=== PATIENT | female | born 1980 | race Caucasian/White ===

== ENCOUNTER 2017-06-07 19:15 | Emergency (ER) | payer MEDICAID, OTHER ==
--- NOTE | 2017-06-07 19:17 | EDPHY ---
H & P HPI/ROS: HPI CHIEF COMPLAINT: Abdominal pain HISTORY OF PRESENT ILLNESS: Patient very pleasant 36-year-old female, she has history of bipolar disorder, additionally she has had her left ovary removed due to a large left ovarian cyst. She intermittently gets right ovarian cyst. She presents emergency room with abdominal pain located right lower quadrant. She denies any fever. Denies vaginal discharge. Denies urinary symptoms. She is unsure if she has another right ovarian cyst 1st appendicitis. She does state she has had some diarrhea 1 episode of vomiting. Pain is located dull ache right lower quadrant /10. Patient states her pain is been there for over 24 hr. Denies fever. Past Medical History: Ovarian cysts, bipolar disorder Past Surgical History: Denies recent surgery but does have a history of left ovarian removal. Due to very large cyst. Social History: Denies drugs alcohol or tobacco. Family History: Noncontributory ROS REVIEW OF SYSTEMS: A comprehensive 10 point review of systems is otherwise negative aside from elements mentioned in the history of present illness. Exam Constitutional appears well non toxic, triage nursing summary reviewed, vital signs reviewed, awake/alert. Eyes normal conjunctivae and sclera, EOMI, PERRLA. HENT normal inspection, atraumatic, moist mucus membranes, no epistaxis, neck supple/ no meningismus, no raccoon eyes. Respiratory clear to auscultation bilaterally, normal breath sounds, no respiratory distress, no wheezing. Cardiovascular rate normal, regular rhythm, no murmur, no edema, distal pulses normal. Gastrointestinal mild tender palpation right lower quadrant specifically periumbilical and right lower quadrant, less so in the adnexal no rebound, no guarding, normal bowel sounds, no distension, no pulsatile mass. Genitourinary no CVA tenderness. Musculoskeletal no midline vertebral tenderness, full range of motion, no calf swelling, no tenderness of extremities, no meningismus, good pulses, neurovascularly intact. Skin pink, warm, & dry, no rash, skin atraumatic. Neurologic awake, alert and oriented x 3, AAOx3, moves all 4 extremities equally, motor intact, sensory intact, CN II-XII intact, normal cerebellar, normal vision, normal speech. Psychiatric normal mood/affect. Heme/Lymph/Immune no lymphadenopathy. Differential Diagnosis: Includes but is not limited to in a particular order acute appendicitis, diverticulitis, colitis, UTI, , pyelonephritis, ovarian cyst, ovarian torsion, ruptured ovarian cyst Medical Decision Making: Plan for this patient IV establishment with IV pain control 0.5 mg IV Dilaudid for pain control, IV Zofran for nausea, IV fluids, check UA, check test, check basic blood work, proceed with CT scan abdomen pelvis with IV contrast rule out acute appendicitis. Re-evaluation: CT scan abdomen pelvis with IV contrast called to me by Dr. Sparks. This shows a normal appendix. However shows a right adnexal the has multiple right ovarian cyst with most likely hemorrhagic ovarian cyst. Recommend OBGYN follow-up. Additionally recommend [place] for severe pain, ibuprofen for mild pain. Warm compresses. Additionally recommend return emergency room if she develops worsening pain fever vomiting. She understands 2100: I did re-evaluate this patient this time. She continues to have right lower abdominal pain. Now more so in the right adnexa. She does feel better after IV Dilaudid. However his crusting more pain medicine. I have ordered her another dose of IV Dilaudid 0.5 mg. Additionally I will refer her to OBGYN for ovarian cyst. I will provide her with a prescription for [place] for severe pain, ibuprofen for mild pain. Additionally given that she is having ongoing pain I will perform an ultrasound to better visualize her right ovary right ovarian cyst. Doubt torsion. Ultrasound at this time is pending. 2233: Ultrasound pretty much unchanged from CT scan. Right ovarian cysts seen. Will have patient follow up with OBGYN. Additionally [place] for pain control. Ibuprofen for pain control. She has no pain on left side or low pelvic pain the pain is located right adnexal right lower quadrant. Recommend return precautions she understands return emergency room if develops worsening abdominal pain, fever, questions or concerns. Source: Patient Constitutional: Initial Vital Signs Temperature (C) 36.7 C 06/07/17 19:25 Heart Rate 78 06/07/17 19:25 Respiratory Rate 16 06/07/17 19:25 Blood Pressure 135/74 H 06/07/17 19:25 O2 Sat (%) 95 06/07/17 19:25 O2 Delivery Mode Room Air O2 (L/minute) 2 Allergies/Adverse Reactions: Sulfa (Sulfonamide Antibiotics) Allergy (Verified 06/07/17 19:36) Home Medications: Medication Instructions Recorded Joe 06/07/17 Hydrocodone/APAP 5/325 [[place] 1 - 2 tab PO Q4H PRN #10 tab 06/07/17 5/325] Ibuprofen [Motrin (*)] 800 mg PO Q6-8PRN #10 tab 06/07/17 LISINOPRIL/HYDROCHLOROTHIAZIDE 06/07/17 Paxil 06/07/17 Seroquel 06/07/17 Medical Decision Making - Diagnostics Imaging Results: Imaging Impressions Abdomen CT 06/07/17 19:41 Impression: 1. Follicles as well as follicular cyst right adnexa with possible hemorrhagic cyst. 2. Normal-appearing appendix. 3. Fluid-filled tubular structure left adnexa that could represent dilated fallopian tube/hydrosalpinx. Findings discussed with Suresh Padilla MD at 20:49 hour, 06/07/2017. - Data Points Laboratory Results: Laboratory Results 06/07/17 19:50 06/07/17 19:50 06/07/17 06/07/17 06/07/17 20:00 19:50 19:50 WBC RBC Hgb Hct MCV MCH MCHC RDW Plt Count MPV Neut % (Auto) Lymph % (Auto) [place] % (Auto) Eos % (Auto) Baso % (Auto) Nucleat RBC Rel Count Absolute Neuts (auto) Absolute Lymphs (auto) Absolute Monos (auto) Absolute Eos (auto) Absolute Basos (auto) Absolute Nucleated RBC Immature Gran % Immature Gran # Sodium 140 mEq/L mEq/L (135-145) Potassium 4.1 mEq/L mEq/L (3.5-5.2) Chloride 99 mEq/L mEq/L (97-110) Carbon Dioxide 26 mEq/l mEq/l (22-31) Anion Gap 15 mEq/L mEq/L (8-16) BUN 15 mg/dL mg/dL (7-23) Creatinine 0.7 mg/dL mg/dL (0.6-1.0) Estimated GFR > 60 Glucose 84 mg/dL mg/dL (70-100) Calcium 9.2 mg/dL mg/dL (8.5-10.4) Total Bilirubin 0.2 mg/dL mg/dL (0.1-1.4) Conjugated Bilirubin 0.1 mg/dL mg/dL (0.0-0.5) Unconjugated Bilirubin 0.1 mg/dL mg/dL (0.0-1.1) AST 25 IU/L IU/L (14-46) ALT 45 IU/L IU/L (9-52) Alkaline Phosphatase 51 IU/L IU/L (38-126) Total Protein 6.9 g/dL g/dL (6.3-8.2) Albumin 4.0 g/dL g/dL (3.5-5.0) Lipase 133 IU/L IU/L (23-300) Beta HCG, Qual NEGATIVE Urine Color PALE YELLOW Urine Appearance CLEAR Urine pH 6.0 (5.0-7.5) Ur Specific [place] <= 1.005 (1.002-1.030) Urine Protein NEGATIVE (NEGATIVE) Urine Ketones NEGATIVE (NEGATIVE) Urine Blood NEGATIVE (NEGATIVE) Urine Nitrate NEGATIVE (NEGATIVE) Urine Bilirubin NEGATIVE (NEGATIVE) Urine Urobilinogen 0.2 EU EU (0.2-1.0) Ur Leukocyte Esterase NEGATIVE (NEGATIVE) Urine Glucose NEGATIVE (NEGATIVE) 06/07/17 19:50 WBC 6.74 10^3/uL 10^3/uL (3.80-9.50) RBC 4.71 10^6/uL 10^6/uL (4.18-5.33) Hgb 14.6 g/dL g/dL (12.6-16.3) Hct 41.6 % % (38.0-47.0) MCV 88.3 fL fL (81.5-99.8) MCH 31.0 pg pg (27.9-34.1) MCHC 35.1 g/dL g/dL (32.4-36.7) RDW 11.4 % L % (11.5-15.2) Plt Count 329 10^3/uL 10^3/uL (150-400) MPV 8.9 fL fL (8.7-11.7) Neut % (Auto) 55.0 % % (39.3-74.2) Lymph % (Auto) 33.7 % % (15.0-45.0) [place] % (Auto) 6.1 % % (4.5-13.0) Eos % (Auto) 4.2 % % (0.6-7.6) Baso % (Auto) 0.6 % % (0.3-1.7) Nucleat RBC Rel Count 0.0 % % (0.0-0.2) Absolute Neuts (auto) 3.71 10^3/uL 10^3/uL (1.70-6.50) Absolute Lymphs (auto) 2.27 10^3/uL 10^3/uL (1.00-3.00) Absolute Monos (auto) 0.41 10^3/uL 10^3/uL (0.30-0.80) Absolute Eos (auto) 0.28 10^3/uL 10^3/uL (0.03-0.40) Absolute Basos (auto) 0.04 10^3/uL 10^3/uL (0.02-0.10) Absolute Nucleated RBC 0.00 10^3/uL 10^3/uL (0-0.01) Immature Gran % 0.4 % % (0.0-1.1) Immature Gran # 0.03 10^3/uL 10^3/uL (0.00-0.10) Sodium Potassium Chloride Carbon Dioxide Anion Gap BUN Creatinine Estimated GFR Glucose Calcium Total Bilirubin Conjugated Bilirubin Unconjugated Bilirubin AST ALT Alkaline Phosphatase Total Protein Albumin Lipase Beta HCG, Qual Urine Color Urine Appearance Urine pH Ur Specific [place] Urine Protein Urine Ketones Urine Blood Urine Nitrate Urine Bilirubin Urine Urobilinogen Ur Leukocyte Esterase Urine Glucose Medications Given: Discontinued Medications Hydrocodone Bitart/Acetaminophen ([place] 5/325mg Prepack#6) 1 btl TAKEHOME EDNOW ONE Stop: 06/07/17 21:01 Last Admin: 06/07/17 21:09 Dose: 1 btl Hydromorphone HCl (Dilaudid) 0.5 mg IVP EDNOW ONE Stop: 06/07/17 19:42 Last Admin: 06/07/17 20:12 Dose: 0.5 mg Hydromorphone HCl (Dilaudid) 0.5 mg IVP EDNOW ONE Stop: 06/07/17 20:59 Last Admin: 06/07/17 21:09 Dose: 0.5 mg Sodium Chloride (Ns) 1,000 mls @ 0 mls/hr IV EDNOW ONE; Wide Open PRN Reason: Protocol Stop: 06/07/17 19:42 Last Admin: 06/07/17 20:15 Dose: 1,000 mls Ondansetron HCl (Zofran) 4 mg IVP EDNOW ONE Stop: 06/07/17 19:42 Last Admin: 06/07/17 20:12 Dose: 4 mg Departure - Departure Disposition: Home, Routine, Self-Care Clinical Impression: Ovarian cyst Qualifiers: Laterality: right Qualified Code(s): N83.201 - Unspecified ovarian cyst, right side Condition: Good Instructions: Hydrocodone/Acetaminophen (By mouth), Ovarian Cyst (ED), Ruptured Ovarian Cyst (ED) Additional Instructions: 1. Follow up with OBGYN. 2. Call for an appointment. 3. Return emergency room if you have worsening pain fever vomiting. 4. Take [place] few having severe pain. 5. Ibuprofen for mild pain. Referrals: NONE *PRIMARY CARE P,. [Primary Care Provider] - As per Instructions Stand Alone Forms: Work Excuse Prescriptions: Hydrocodone/APAP 5/325 [[place] 5/325] 1 - 2 tab PO Q4H PRN #10 tab PRN Reason: Pain, Moderate Ibuprofen [Motrin (*)] 800 mg PO Q6-8PRN #10 tab
[2017-06-07] MEDS ORDERED: HYDROmorphONE/DILAUDID 1 MG/ML INJ IVP ONE ×2 (19:41→20:58)
[2017-06-07] MEDS ORDERED: ONDANSETRON 4 MG/2 ML VIAL IVP ONE (19:41)
[2017-06-07] MEDS ORDERED: NS 1,000 ML IV ONE (19:41)
[2017-06-07 19:44] VITALS: RESP 16
[2017-06-07] MEDS ORDERED: IOPAMIDOL (ISOVUE-300) 100 ML BTL ONE (19:47)
[2017-06-07 19:54] LABS: PLATELET COUNT 329 10^3/uL (150-400)
[2017-06-07] MEDS ORDERED: HYDROCOD/APAP 5/325 PREPACK#6 BTL TAKEHOME ONE (21:00)
[2017-06-07 22:01] VITALS: BP 117/92; TEMP 98.4
[2017-06-07 22:06] VITALS: PULSE 72; O2SAT 98
== END 2017-06-07 22:44 | disposition home or self-care (01) ==
LOC: CED 19:15
DX: N83.201 Unspecified ovarian cyst, right side (principal); E86.9 Volume depletion, unspecified
CPT/HCPCS: 74177-PO; 76856-PO; 80048-PO; 80076-PO; 81003-PO; 83690-PO; 84703-PO; 85025-PO; 96374; J1170; J2405; Q9967

== ENCOUNTER 2017-06-10 17:20 | Emergency (ER) | payer MEDICAID ==
[2017-06-10 17:33] VITALS: RESP 16; TEMP 98.2; O2SAT 97
[2017-06-10 18:02] LABS: PLATELET COUNT 263 10^3/uL (150-400)
[2017-06-10] MEDS ORDERED: KETOROLAC 30 MG/1 ML SDV IVP ONE (18:02)
[2017-06-10] MEDS ORDERED: NS 1,000 ML IV ONE (18:03)
--- NOTE | 2017-06-10 18:11 | EDPHY ---
HPI/HX/ROS/PE/MDM Narrative: CHIEF COMPLAINT: Pelvic pain HPI: The patient is a 36-year-old female who was seen in the emergency department 3 days ago for pelvic pain which started the day prior. At that time she had a CT scan and ultrasound which were negative except for ovarian cysts which was her discharge diagnosis. She returns to the emergency department complaining of continued right lower quadrant pain that has been constant. She was prescribed [place] which has run out and she has been unable to establish a recovery assistant. She states that her pain is worse and she has become nauseated. She states that she now notices a small amount of vaginal discharge. She has plans to follow up with a recovery assistant tomorrow. No fever. No trauma. Pain is worse with intercourse and sitting in certain positions. REVIEW OF SYSTEMS: Aside from elements discussed in the HPI, a comprehensive 10-point review of systems was reviewed and is negative. PMH: Includes bipolar, history of ovarian removal. SOCIAL HISTORY: Denies drug or alcohol abuse. PHYSICAL EXAM: General:Patient is alert, in no acute distress. ENT:Eyes are normal to inspection. ENT inspection normal. Neck: Normal inspection. Full range of motion. Respiratory:No respiratory distress. Breath sounds normal bilaterally. Cardiovascular: Regular rate and rhythm. Strong peripheral pulses. Normal cap refill. Abdomen: Moderate tenderness to palpation is present in the right lower quadrant. There are no peritoneal signs. There are normal bowel sounds. Back: Normal to inspection. No tenderness to palpation. Skin: Normal color. No rash. Warm and dry. Extremities: Normal appearance. Full range of motion. Neuro: Oriented x3. Normal motor function. Normal sensory function. ED Course: Pelvic exam was performed with RN present at bedside. Small amount of brownish discharge noted in vaginal vault. Os is closed. No bleeding, trauma or obvious mass appreciated. No external mass or lesions. IV Toradol administered. On re-evaluation, abdomen remains benign. Patient lying comfortably in bed watching TV. MDM: This patient presents with continued pelvic pain with ovarian cyst diagnosed three days ago with otherwise negative CT and US. Her WBC remains normal, as does her vitals. She is not . Pelvic exam was performed and was unremarkable except for some mild brownish discharge. Swabs were performed but need to be sent to main lab to be run. I offered to start patient empirically on antibiotics for PID, but she would prefer to wait on swab results and will call in to find out the results. Patient was given referral to [facility] at last visit and plans to see [facility] tomorrow for further evaluation. Given constancy of pain for last 4 days and comfortable appearance with negative US 3 days ago, I highly doubt ovarian torsion. Patient declines additional pelvic US. With negative CTAP and normal WBC, I think appendicitis is very unlikely, and do not think repeat CT is indicated at this time. I have agreed to provide patient with additional short course of Percocet until she can be seen by [facility]. - Data Points Laboratory Results: Laboratory Results 06/10/17 17:55 06/10/17 17:55 06/10/17 06/10/17 06/10/17 18:15 18:15 17:55 WBC RBC Hgb Hct MCV MCH MCHC RDW Plt Count MPV Neut % (Auto) Lymph % (Auto) [place] % (Auto) Eos % (Auto) Baso % (Auto) Nucleat RBC Rel Count Absolute Neuts (auto) Absolute Lymphs (auto) Absolute Monos (auto) Absolute Eos (auto) Absolute Basos (auto) Absolute Nucleated RBC Immature Gran % Immature Gran # Sodium Potassium Chloride Carbon Dioxide Anion Gap BUN Creatinine Estimated GFR Glucose Calcium Beta HCG, Qual NEGATIVE Simran species DNA Pending C.trachomatis RNA (TMA) Pending Gardnerella DNA Probe Pending N.gonorrhoeae RNA (TMA) Pending Trichomonas DNA Probe Pending 06/10/17 06/10/17 17:55 17:55 WBC 5.89 10^3/uL 10^3/uL (3.80-9.50) RBC 4.42 10^6/uL 10^6/uL (4.18-5.33) Hgb 13.8 g/dL g/dL (12.6-16.3) Hct 40.0 % % (38.0-47.0) MCV 90.5 fL fL (81.5-99.8) MCH 31.2 pg pg (27.9-34.1) MCHC 34.5 g/dL g/dL (32.4-36.7) RDW 11.5 % % (11.5-15.2) Plt Count 263 10^3/uL D 10^3/uL (150-400) MPV 9.2 fL fL (8.7-11.7) Neut % (Auto) 57.5 % % (39.3-74.2) Lymph % (Auto) 28.9 % % (15.0-45.0) [place] % (Auto) 7.8 % % (4.5-13.0) Eos % (Auto) 4.9 % % (0.6-7.6) Baso % (Auto) 0.7 % % (0.3-1.7) Nucleat RBC Rel Count 0.0 % % (0.0-0.2) Absolute Neuts (auto) 3.39 10^3/uL 10^3/uL (1.70-6.50) Absolute Lymphs (auto) 1.70 10^3/uL 10^3/uL (1.00-3.00) Absolute Monos (auto) 0.46 10^3/uL 10^3/uL (0.30-0.80) Absolute Eos (auto) 0.29 10^3/uL 10^3/uL (0.03-0.40) Absolute Basos (auto) 0.04 10^3/uL 10^3/uL (0.02-0.10) Absolute Nucleated RBC 0.00 10^3/uL 10^3/uL (0-0.01) Immature Gran % 0.2 % % (0.0-1.1) Immature Gran # 0.01 10^3/uL 10^3/uL (0.00-0.10) Sodium 137 mEq/L mEq/L (135-145) Potassium 4.3 mEq/L mEq/L (3.5-5.2) Chloride 97 mEq/L mEq/L (97-110) Carbon Dioxide 28 mEq/l mEq/l (22-31) Anion Gap 12 mEq/L mEq/L (8-16) BUN 11 mg/dL mg/dL (7-23) Creatinine 0.7 mg/dL mg/dL (0.6-1.0) Estimated GFR > 60 Glucose 79 mg/dL mg/dL (70-100) Calcium 9.0 mg/dL mg/dL (8.5-10.4) Beta HCG, Qual Simran species DNA C.trachomatis RNA (TMA) Gardnerella DNA Probe N.gonorrhoeae RNA (TMA) Trichomonas DNA Probe Medications Given: Discontinued Medications Sodium Chloride (Ns) 1,000 mls @ 0 mls/hr IV EDNOW ONE; Wide Open PRN Reason: Protocol Stop: 06/10/17 18:04 Last Admin: 06/10/17 18:06 Dose: 1,000 mls Ketorolac Tromethamine (Toradol) 30 mg IVP EDNOW ONE Stop: 06/10/17 18:03 Last Admin: 06/10/17 18:08 Dose: 30 mg General Time Seen by Provider: 06/10/17 17:29 Initial Vital Signs: Initial Vital Signs Temperature (C) 36.8 C 06/10/17 17:29 Heart Rate 84 06/10/17 17:29 Respiratory Rate 16 06/10/17 17:29 Blood Pressure 119/87 H 06/10/17 17:29 O2 Sat (%) 97 06/10/17 17:29 O2 Delivery Mode Room Air Allergies/Adverse Reactions: Sulfa (Sulfonamide Antibiotics) Allergy (Verified 06/10/17 17:33) Home Medications: Medication Instructions Recorded Ambien 06/07/17 LISINOPRIL/HYDROCHLOROTHIAZIDE 06/07/17 Paxil 06/07/17 Depakote 06/10/17 Xanax 06/10/17 oxyCODONE/APAP 5/325 [Percocet 1 - 2 tab PO Q4H PRN #7 tab 06/10/17 5/325 (*)] Departure - Departure Disposition: Home, Routine, Self-Care Clinical Impression: Pelvic pain in female Condition: Good Instructions: Pelvic Pain in Women (ED) Additional Instructions: Follow-up with a recovery assistant tomorrow for further evaluation without fail. Return to the ED for fever, worsening pain or other concerns. Call back to the ED tomorrow morning to get results of the swab samples taken. Referrals: NONE *PRIMARY CARE P,. [Primary Care Provider] - As per Instructions Prescriptions: oxyCODONE/APAP 5/325 [Percocet 5/325 (*)] 1 - 2 tab PO Q4H PRN #7 tab PRN Reason: Pain, Severe
[2017-06-10] MEDS ORDERED: OXYCODONE/APAP 5/325MG PREPACK#4 BTL TAKEHOME ONE (18:48)
[2017-06-10 19:23] VITALS: BP 126/83; PULSE 81
[2017-06-11 13:26] LABS: GC AMPLIFICATION GENPROBE NEGATIVE (NEGATIVE)
== END 2017-06-10 19:17 | disposition home or self-care (01) ==
LOC: CED 17:20
DX: R10.2 Pelvic and perineal pain (principal); E86.9 Volume depletion, unspecified
CPT/HCPCS: 80048-PO; 84703-PO; 85025-PO; 96374; J1885

== ENCOUNTER 2017-06-21 11:58 | Emergency (ER) | payer MEDICAID ==
[2017-06-21 12:06] VITALS: RESP 18; TEMP 98.8
[2017-06-21] MEDS ORDERED: KETOROLAC 30 MG/1 ML SDV IM ONE (12:12)
[2017-06-21] MEDS ORDERED: ONDANSETRON DISINTEGRATING 4 MG TAB PO ONE (12:12)
--- NOTE | 2017-06-21 12:16 | EDPHY ---
H & P Stated Complaint: RLQ ABD PAIN STARTED LAST NIGHT Time Seen by Provider: 06/21/17 12:07 HPI/ROS: CHIEF COMPLAINT: Ovarian cyst pain HISTORY OF PRESENT ILLNESS: Patient is a 36-year-old female who is seen here on the and diagnosed with right-sided ovarian cyst. She was prescribed narcotics and follow-up recommended. She followed up with her OBGYN yesterday who performed an ultrasound and pelvic exam and stated that this cyst is still present. They recommended drainage which was scheduled for the . She has continued to have pain but was not prescribe narcotics by her OBGYN yesterday. She has been taking Tylenol without significant relief. She also has some nausea. She has not had a fever. She states that her pain has not changed in location or intensity. No urinary symptoms. She has not had any discharge. REVIEW OF SYSTEMS: Constitutional: denies: chills, fever, recent illness, recent injury EENTM: denies: blurred vision, double vision, nose congestion Respiratory: denies: cough, shortness of breath Cardiac: denies: chest pain, irregular heart rate, lightheadedness, palpitations Gastrointestinal/Abdominal: See HPI Genitourinary: denies: dysuria, frequency, hematuria, pain Musculoskeletal: denies: joint pain, muscle pain Skin: denies: lesions, rash, jaundice, bruising Neurological: denies: headache, numbness, paresthesia, tingling, dizziness, weakness Hematologic/Lymphatic: denies: blood clots, easy bleeding, easy bruising Immunologic/allergic: denies: HIV/AIDS, transplant EXAM: GENERAL: Well-appearing, well-nourished and in no acute distress. HEAD: Atraumatic, normocephalic. EYES: Pupils equal round and reactive to light, extraocular movements intact, sclera anicteric, conjunctiva are normal. ENT: TMs normal, nares patent, oropharynx clear without exudates. Moist mucous membranes. NECK: Normal range of motion, supple without lymphadenopathy or JVD. LUNGS: Breath sounds clear to auscultation bilaterally and equal. No wheezes rales or rhonchi. HEART: Regular rate and rhythm without murmurs, rubs or gallops. ABDOMEN: Mild right lower quadrant tenderness, no guarding or rebound. BACK: No CVA tenderness, no spinal tenderness, step-offs or deformities EXTREMITIES: Normal range of motion, no pitting or edema. No clubbing or cyanosis. NEUROLOGICAL: Cranial nerves II through XII grossly intact. Normal speech, normal gait. 5/5 strength, normal movement in all extremities, normal sensation PSYCH: Normal mood, normal affect. SKIN: Warm, dry, normal turgor, no visible rashes or lesions. Source: Patient Exam Limitations: No limitations - Personal History LMP (Females 10-55): 15-21 Days Ago - Medical/Surgical History Hx Asthma: No Hx Chronic Respiratory Disease: No Hx Diabetes: No Hx Cardiac Disease: No Hx Renal Disease: No Hx Cirrhosis: No Hx Alcoholism: No Hx HIV/AIDS: No Hx Splenectomy or Spleen Trauma: No Other PMH: HTN. L OVARY REMOVED. - Social History Smoking Status: Heavy smoker Alcohol Use: Sober Drug Use: None Constitutional: Initial Vital Signs Temperature (C) 37.1 C 06/21/17 12:03 Heart Rate 99 06/21/17 12:03 Respiratory Rate 18 06/21/17 12:03 Blood Pressure 145/85 H 06/21/17 12:03 O2 Sat (%) 96 06/21/17 12:03 O2 Delivery Mode Room Air Allergies/Adverse Reactions: Sulfa (Sulfonamide Antibiotics) Allergy (Verified 06/21/17 12:26) Home Medications: Medication Instructions Recorded Ambien 06/07/17 LISINOPRIL/HYDROCHLOROTHIAZIDE 06/07/17 Paxil 06/07/17 Depakote 06/10/17 Xanax 06/10/17 oxyCODONE/APAP 5/325 [Percocet 1 - 2 tab PO Q4H PRN #7 tab 06/10/17 5/325 (*)] Ketorolac Tromethamine [Toradol] 10 mg PO Q6H #7 tab 06/21/17 Ondansetron Odt [Zofran Odt 4 mg 4 mg PO Q4 PRN #10 tab 06/21/17 (RX)] Medical Decision Making - Diagnostics Imaging: Discussed imaging studies w/ call center dispatcher Radiologist ED Course/Re-evaluation: We discussed options. The patient does not think she needs any further diagnostic studies. Her symptoms have not really changed it is just that she no longer has narcotic pain medication. She tried calling her OBGYN but she was out of the office. I will give her a dose of Toradol and Zofran but discussed with her are no narcotic in no refill policy. She understands and agrees. She will continue trying to contact her OBGYN that she saw yesterday. I advised her to return if any for symptoms worsen or change. 12:20 p.m. after further discussion the patient did agree to get a pelvic ultrasound to rule out torsion. She declines pelvic exam. She just had one done yesterday. 2:30 p.m. the patient has an ovarian cyst and hydrosalpinx as previously seen although the cyst is slightly larger today. No sign of torsion. The patient feels reassured and will follow up with her OBGYN. She has salpingectomy plannedon the . Differential Diagnosis: Partial list of the Differential diagnosis considered include but were not limited to; ovarian cyst, ovarian torsion, appendicitis and although unlikely based on the history and physical exam, I also considered diverticulitis, kidney stone, urinary tract infection. She understands that we cannot rule out all of these conditions without testing. - Data Points Medications Given: Discontinued Medications Ketorolac Tromethamine (Toradol) 60 mg IM EDNOW ONE Stop: 06/21/17 12:13 Last Admin: 06/21/17 12:28 Dose: 60 mg Ondansetron HCl (Zofran Odt) 4 mg PO EDNOW ONE Stop: 06/21/17 12:13 Last Admin: 06/21/17 12:26 Dose: 4 mg Departure - Departure Disposition: Home, Routine, Self-Care Clinical Impression: Ovarian cyst Qualifiers: Laterality: right Qualified Code(s): N83.201 - Unspecified ovarian cyst, right side Condition: Fair Instructions: Ovarian Cyst (ED) Referrals: Naina Ac DO [Primary Care Provider] - As per Instructions Prescriptions: Ketorolac Tromethamine [Toradol] 10 mg PO Q6H #7 tab Ondansetron Odt [Zofran Odt 4 mg (RX)] 4 mg PO Q4 PRN #10 tab PRN Reason: Nausea & Vomiting
[2017-06-21 14:29] VITALS: BP 106/55; PULSE 73; O2SAT 98
== END 2017-06-21 14:40 | disposition home or self-care (01) ==
LOC: CED 11:58
DX: N83.201 Unspecified ovarian cyst, right side (principal); I10 Essential (primary) hypertension; F17.200 Nicotine dependence, unspecified, uncomplicated
CPT/HCPCS: 76856-PO; J1885

== ENCOUNTER 2017-06-28 05:03 | Day surgery (SDC) | payer MEDICAID, OTHER ==
--- NOTE | 2017-06-26 14:38 | GHP ---
[f rep st] HISTORY AND PHYSICAL DATE OF ADMISSION: 06/28/2017 ADMITTING DIAGNOSES: 1. Right lower quadrant abdominal pain. 2. Pelvic pain. HISTORY OF PRESENT ILLNESS: The patient is a 36-year-old nulliparous female who presented to my office for ER followup. The patient was seen in the ER on both June 07 and June 10 with complaints of right lower quadrant abdominal pain, acute onset, and was diagnosed with a right-sided ovarian cyst. The patient endorses nausea and vomiting. Denies any fevers or chills. The patient continues to have pain that has worsened with radiation to the back. It is constant on a daily basis. Some relief with heat. No relief with Motrin or Tylenol. Pain is aggravated with intercourse. There are no alleviating factors. Patient does have a history of endometriosis and status post a left oophorectomy via laparotomy 7 years ago. The patient is concerned with how much pain she is having and would like to see what the cause of her pain is at this time. She states cycles are irregular. She can skip months at a time. She does not use any control. The patient does have a PCP in [place] whom she sees for her bipolar disorder and hypertension. She is stable on meds. PAST OB HISTORY: Patient is nulliparous. PAST HR RECRUITER HISTORY: Age of menarche 15. Cycles are irregular. She has a history of endometriosis. No control. She denies a history of abnormal Pap smears or any exposure to sexually transmitted diseases. PAST MEDICAL HISTORY: Remarkable for hypertension, bipolar disorder, endometriosis. PAST SURGICAL HISTORY: Laparotomy with left oophorectomy 7 years ago. MEDICATIONS: Include Paxil, Depakote, Xanax, lisinopril. ALLERGIES: Sulfa. FAMILY HISTORY: Noncontributory. SOCIAL HISTORY: The patient endorses tobacco use and usually smokes a pack a day. Just recently is down to 3-4 cigarettes a day. Alcohol use 2-3 times a week and denies any illicit drug use. Patient does have a fiance. REVIEW OF SYSTEMS: Ten-point review of systems is negative. Pertinent positives noted in HPI. LABS: H and H 13.8 and 40. Ultrasound: A normal uterus, 6 x 3 x 5 cm, with no masses, endometrial stripe at 6 mm, right ovary with small follicles, left adnexa with a tubular, fluid-containing structure, about 12 mm, question hydrosalpinx, and then on repeat ultrasound, again, bilateral hydrosalpinx 1 cm on the right, 1.3 cm left, and right ovarian cyst slightly larger at 2 x 2 x 3 cm. No free fluid. PHYSICAL EXAMINATION: VITAL SIGNS: On admission, vital signs are stable. The patient is a well-nourished, well-developed female, alert and oriented x3. No apparent distress. CARDIOVASCULAR: Regular rate and rhythm. LUNGS: Clear to auscultation bilaterally. ABDOMEN: There is mild tenderness to palpation, right lower quadrant greater than left lower quadrant. There is a midline scar noted, which is tender to palpation. PELVIC: Exam is deferred. EXTREMITIES: Normal to inspection, without calf tenderness. ASSESSMENT: Patient is a 36-year-old, nulliparous, with acute onset right lower quadrant abdominopelvic pain. 1. Discussed proceeding with surgery, diagnostic laparoscopy to determine the etiology of her pain. We discussed its limitations, n.p.o. status, and postop recovery. 2. Surgical consents were obtained. We discussed risks, benefits, and alternatives, including but not limited to, bleeding, infection, and damage to surrounding organs. Patient understands all risks at this time and wants to proceed with surgery. 3. We discussed smoking cessation prior to surgery and after surgery. 4. Antibiotics threat monitoring analyst to OR. 5. DVT prophylaxis with SCDs. /[id number]/MODL ERWIN
[2017-06-28] MEDS ORDERED: LIDOCAINE 1% 2 ML INJ ID PRN (05:33)
[2017-06-28] MEDS ORDERED: LR 1,000 ML IV ONE (05:33)
[2017-06-28 05:51] VITALS: PULSE 64
[2017-06-28] MEDS ORDERED: MIDAZOLAM 2 MG/2 ML VIAL IVP ONE (06:56)
[2017-06-28] MEDS ORDERED: BUPIVACAINE 0.5% 30 ML SDV ONE (06:58)
[2017-06-28] MEDS ORDERED: SILVER NITRATE APPLICATOR 1 APPL TP ONE (06:58)
--- NOTE | 2017-06-28 06:58 | PDANEPAE ---
ANE History of Present Illness diagnostic laparoscopy for abd pain ANE Past Medical History - Cardiovascular History Hx Hypertension: Yes Hx Arrhythmias: No Hx Chest Pain: No Hx Coronary Artery / Peripheral Vascular Disease: No Hx CHF / Valvular Disease: No Hx Palpitations: No - Pulmonary History Hx COPD: No Hx Asthma/Reactive Airway Disease: No Hx Recent Upper Respiratory Infection: No Hx Oxygen in Use at Home: No Hx Sleep Apnea: No Sleep Apnea Screening Result - Last Documented: Negative - Neurologic History Hx Cerebrovascular Accident: No Hx Seizures: No Hx Dementia: No - Endocrine History Hx Diabetes: No Obesity: yes - Renal History Hx Renal Disorders: No - Liver History Hx Hepatic Disorders: No - Neurological & Psychiatric Hx Hx Neurological and Psychiatric Disorders: Yes Neurological / Psychiatric History Comment: anxiety and depression - Cancer History Hx Cancer: No - Congenital Disorder History Hx Congenital Disorders: No - GI History Hx Gastrointestinal Disorders: Yes Gastrointestinal History Comment: reflux - Other Health History Other Health History: chronic pelvic pain - Chronic Pain History Chronic Pain: No - Surgical History Prior Surgeries: none ANE Review of Systems Review of systems is: negative Review of Systems: - Exercise capacity METS (RN): 4 METS ANE Patient History - Allergies Allergies/Adverse Reactions: Sulfa (Sulfonamide Antibiotics) Allergy (Verified 06/21/17 12:26) - Home Medications Home medications: home medication list seen and reviewed Home Medications: Ambien 06/07/17 [Last Taken 06/27/17 21:00] LISINOPRIL/HYDROCHLOROTHIAZIDE 06/07/17 [Last Taken 06/27/17 12:00] Paxil 06/07/17 [Last Taken 06/27/17 12:00] Depakote 06/10/17 [Last Taken 06/27/17 12:00] Xanax 06/10/17 [Last Taken 06/27/17 12:00] oxyCODONE/APAP 5/325 [Percocet 5/325 (*)] 06/26/17 [Last Taken Unknown] TYLENOL #3 06/28/17 [Last Taken 06/27/17 21:00] - NPO status NPO Since - Liquids (Date): 06/27/17 NPO Since - Liquids (Time): 23:00 NPO Since - Solids (Date): 06/27/17 NPO Since - Solids (Time): 20:00 - Anes Hx Anes Hx: no prior problems - Smoking Hx Smoking Status: Heavy smoker - Family Anes Hx Family Hx Anesthesia Complications: none ANE Labs/Vital Signs - Vital Signs Blood Pressure: 112/68 Heart Rate: 64 Respiratory Rate: 16 O2 Sat (%): 95 Height: 170.18 cm Weight: 83.915 kg ANE Physical Exam - Airway Neck exam: FROM Mallampati Score: Class 1 Mouth exam: normal dental/mouth exam - Pulmonary Pulmonary: no respiratory distress - Cardiovascular Cardiovascular: regular rate and rhythym - ASA Status ASA Status: III ANE Anesthesia Plan Anesthesia Plan: general endotracheal anesthesia
[2017-06-28] MEDS ORDERED: ceFAZolin 2 GM/SWFI 2 GM/20 ML SYR IVP ONE (06:59)
--- NOTE | 2017-06-28 06:59 | PDHPUP ---
History & Physical Update H&P update statement: This history and physical update is based on an assessment of the patient which was completed after admission or registration (within 24 hours), but prior to the surgery/procedure. H&P update: H&P reviewed & patient examined, no change in patient's condition since H&P completed
[2017-06-28] MEDS ORDERED: DEXAMETHASONE 4 MG/ML VIAL ONE (07:03)
[2017-06-28] MEDS ORDERED: KETOROLAC 30 MG/1 ML SDV ONE (07:03)
[2017-06-28] MEDS ORDERED: PROPOFOL 200 MG/20 ML VIAL ONE ×2 (07:03→08:02)
[2017-06-28] MEDS ORDERED: SUGAMMADEX SODIUM 200 MG/2 ML VIAL IVP ONE (07:03)
[2017-06-28] MEDS ORDERED: ONDANSETRON 4 MG/2 ML VIAL ONE (07:03)
[2017-06-28] MEDS ORDERED: ROCURONIUM 50 MG/5 ML VIAL ONE ×2 (07:03→08:17)
[2017-06-28] MEDS ORDERED: LIDOCAINE 2% 5 ML SDV ONE (07:03)
[2017-06-28] MEDS ORDERED: fentaNYL 100 MCG/2 ML INJ ONE ×4 (07:03→10:15)
[2017-06-28] MEDS ORDERED: ALBUTEROL HFA ANES ONLY 200 PUFFS/8.5 GM MDI IH ONE (07:45)
[2017-06-28] MEDS ORDERED: ALBUTEROL 3 ML DEYVIAL IH PRN (08:58)
[2017-06-28] MEDS ORDERED: HYDROmorphONE/DILAUDID 1 MG/ML INJ IVP PRN (08:58)
[2017-06-28] MEDS ORDERED: LR 500 ML IV PRN (08:58)
[2017-06-28] MEDS ORDERED: fentaNYL 100 MCG/2 ML INJ IVP PRN (08:58)
[2017-06-28] MEDS ORDERED: LABETALOL HCL 5 MG/ML 20 ML MDV IVP PRN (08:58)
[2017-06-28] MEDS ORDERED: ACETAMINOPHEN 500 MG TAB PO PRN (08:58)
[2017-06-28] MEDS ORDERED: PROMETHAZINE HCL 25 MG/ML INJ IVP PRN (08:58)
[2017-06-28] MEDS ORDERED: DEXAMETHASONE 4 MG/ML VIAL IVP PRN (08:58)
[2017-06-28] MEDS ORDERED: HYDROCODONE/APAP 5/325 TAB PO PRN ×3 (08:58→10:21)
[2017-06-28] MEDS ORDERED: NALOXONE HCL 0.4 MG/ML INJ IVP PRN (08:58)
[2017-06-28] MEDS ORDERED: OXYCODONE/APAP 5/325 TAB PO PRN (08:58)
[2017-06-28] MEDS ORDERED: ONDANSETRON 4 MG/2 ML VIAL IVP PRN (08:58)
[2017-06-28] MEDS ORDERED: LABETALOL HCL 5 MG/ML 20 ML MDV ONE (09:11)
--- NOTE | 2017-06-28 10:14 | POSTOPPROG ---
Post Op Note Date of Operation: 06/28/17 Surgeon: Naina Ac Market Research Lead: Yolanda Han Anesthesiologist: Westley Fenton Anesthesia: GET(General Endotracheal) Pre-op Diagnosis: RLQ Pain, pelvic pain Post-op Diagnosis: Pelvic adhesions-omental and bowel; R hydosalpinx; R ovarian cyst Indication: 36 y/o nulliparous with acute RLQ pain and pelvic pain; h/o endometriosis Procedure: Dx Laparoscopy, Extensive adhesiolysis, R salpingectomy Findings: Ut w/ ant adhesions to bowel; omental/bowel adhesions; R hydrosalpinx/ cyst Inf/Abcess present in the surg proc area at time of surgery?: No Depth: Organ Space EBL: Minimal (25 cc) Total fluids administered: 800 cc crystalloid UO: 190 cc clear urine Complications: None Specimen(s): R tube
--- NOTE | 2017-06-28 10:17 | POSTANESTH ---
Post Anesthetic Evaluation Cardiovascular Status: Normal, Stable Respiratory Status: Normal, Stable Level of Consciousness/Mental Status: Can Participate in Eval Pain Control: Adequate, Prn Tx Ordered Nausea/Vomiting Control: Adequate, Prn Tx Ordered Complications Possibly Related to Anesthesia: None Noted
[2017-06-28] MEDS ORDERED: HYDROmorphONE/DILAUDID 1 MG/ML INJ ONE (10:29)
[2017-06-28 10:48] VITALS: O2SAT 95
[2017-06-28 10:49] VITALS: TEMP 97.3
[2017-06-28 11:18] VITALS: RESP 16
[2017-06-28 12:00] VITALS: BP 129/67
--- NOTE | 2017-06-28 23:29 | GOP ---
[f rep st] OPERATIVE REPORT DATE OF OPERATION: 06/28/2017 SURGEON: Naina Ac DO MARINE ARCHITECT: Yolanda Han MD ANESTHESIA: General endotracheal. ANESTHESIOLOGIST: Westley Fenton MD PREOPERATIVE DIAGNOSIS: Right lower quadrant pain, pelvic pain. POSTOPERATIVE DIAGNOSIS: Right lower quadrant pain, pelvic pain, pelvic adhesions-both omental and bowel, right hydrosalpinx, right ovarian cyst. PROCEDURE PERFORMED: Dx Laparoscopy, Adhesiolysis, Right Salpingectomy FINDINGS: A grossly normal-appearing uterus; however, there were adhesions noted anteriorly to the bowel. There was a right hydrosalpinx that was also adhered to the uterus, and right ovary that was socked down in the adnexal area , with a simple appearing 2-3 cm cyst. Upon entry into the abdomen, there were noted to be omental adhesions to the anterior abdominal wall, as well as bowel adhesions. Left ovary was surgically absent. Left tube was not visualized secondary to adhesions. SPECIMENS: Right fallopian tube. ESTIMATED BLOOD LOSS: 25 cc. INDICATIONS: The patient is a 36-year-old nulliparous female who presents with acute onset right lower quadrant pain, as well as pelvic pain. She had been seen in the emergency room 3 times, and diagnosed with bilateral hydrosalpinx, as well as a right ovarian cyst. The patient states pain is on a daily basis and constant. There is no radiation. Denies any exacerbating or alleviating factors. She does have a history of endometriosis with a left oophorectomy and wants to know the cause of this pain. We discussed risks of the procedure including, but not limited to, bleeding, infection, damage to surrounding organs. The patient understands all risks of the surgery and wants to proceed with surgery at this time. The patient was properly consented. DESCRIPTION OF PROCEDURE: The patient was taken to the operating room where general anesthesia was obtained without difficulty. The patient was placed in the dorsal lithotomy position, prepped and draped in normal sterile fashion. Mei catheter was placed in the bladder. At this time, an open-ended speculum was placed in the vagina. The anterior lip of the cervix was grasped with a single-tooth tenaculum. The uterus was unable to be sounded. I attempted to dilate the cervix with the smallest Juaquin dilator and was unsuccessful. So an acorn manipulator was placed into the cervix to act as a means to manipulate the uterus. We then turned our attention to the abdomen. The umbilicus was infiltrated with 0.5% plain Marcaine. A stab incision was made through it. Veress needle was then placed through this incision while tenting up the abdominal wall. Aspiration was negative. Abdomen was then insufflated with CO2 gas. Pneumoperitoneum was obtained. Then a 5 mm trocar containing a 5 mm, 0 degree scope was then placed in the abdomen under direct visualization. At this time, we noted inadequate visualization of the pelvis due to all the omental and bowel adhesions. We strategically placed the other 2 ports under direct visualization, one in the left lower quadrant, 10 mm, and the other one in the right lower quadrant, 5 mm. The patient was then placed in Trendelenburg position. Pelvic findings noted as above. At this time using the LigaSure, the omental adhesions were taken down paying attention to avoid bowel. After adhesiolysis of omental adhesions, we were able to visualize the pelvis. Further adhesiolysis was performed to remove bowel from the anterior uterus. There were thin filmy adhesions noted here. We then turned our attention to the right adnexa. The right hydrosalpinx was dissected out, and the right tube was then removed after dissection using the LigaSure. The pedicle did appear hemostatic. We visualized the right ovary, and it appeared to have a 2- to 3- cm simple cyst. There was noted to be lots of adhesions and vessels in the left adnexa. We did not dissect or do any adhesiolysis secondary to risk of bleeding. We did visualize the right ureter with peristalsis. Using the 10 mm port on the left side, the right fallopian tube was removed intact through this port without difficulty and sent to Pathology. The pelvis was then irrigated with normal saline. All pedicles did appear hemostatic. Surgicel was then placed over the right adnexal region where the fallopian tube was removed to hopefully prevent future adhesions. The patient was then taken out of Trendelenburg position. Using the fascial device, the fascia of the 10 mm incision was closed with 0 Vicryl. All instruments and trocars were then removed from the patient's abdomen, the gas was allowed to escape from the abdomen. All skin incisions were closed with Dermabond. The patient tolerated the procedure well. No complications. Sponge, instrument, and needle counts correct x2. Mei catheter was removed, as well as the uterine manipulator and single-tooth tenaculum. There was noted to be no bleeding from the vagina or the area of the tenaculum site. The patient was then taken out of dorsal lithotomy position, awakened, and sent to PACU in stable condition. INTRAVENOUS FLUIDS: 800 cc of crystalloid LR. URINE OUTPUT: 190 cc of clear urine at the end of the procedure. /[id number]/MODL MTDD
== END 2017-06-28 11:53 | disposition home or self-care (01) ==
LOC: FSGY 05:03
PROVIDERS: ATTEND Obstetrics & Gynecology
PROC: 0DNU4ZZ Release Omentum, Percutaneous Endoscopic Approach (ICD-10-PCS; principal; 2017-06-28 07:15)
PROC: 0UB54ZZ Excision of Right Fallopian Tube, Percutaneous Endoscopic Approach (ICD-10-PCS; principal; 2017-06-28 07:15)
DX: N99.4 Postprocedural pelvic peritoneal adhesions (principal); N83.201 Unspecified ovarian cyst, right side; N70.11 Chronic salpingitis
CPT/HCPCS: J0690; J1100; J1170; J1885; J2250; J2405; J2704; J3010

== ENCOUNTER 2017-08-17 16:42 | Emergency (ER) | payer MEDICAID ==
[2017-08-17] MEDS ORDERED: ONDANSETRON 4 MG/2 ML VIAL IVP ONE (17:10)
[2017-08-17] MEDS ORDERED: NS 1,000 ML IV ONE ×2 (17:10→17:20)
--- NOTE | 2017-08-17 17:14 | EDPHY ---
H & P Time Seen by Provider: 08/17/17 19:23 HPI/ROS: Chief complaint. Vomiting HPI. 36-year-old female with vomiting that began at 5:00 a.m. Today. She started her menstrual. And thinks that this is the cause. Otherwise no travel or bad food exposure. 7 some diarrhea to she has some crampy mid abdominal pain which she says is fairly typical with menstrual periods. patient had been seen multiple times in our emergency department for abdominal pain and pelvic pain. She was seen on June 07, June 10, June 21 and then had surgery on June 28 for adhesions in the pelvis and hydrosalpinx. This greatly improved her pelvic pain. She has no chest pain or shortness of breath. No fever. No urinary symptoms ROS Constitutional. no fever/chills, no weakness Eyes. no problems with vision ENT. no sore throat, no nasal drainage Cardiovascular. no chest pain Respiratory. no shortness of breath, no cough Abdominal. Abdominal pain with nausea vomiting and diarrhea . no problems urinating MS. no calf pain/swelling, no neck/back pain, no joint pain Skin. no rash Lymph. no swollen glands Neuro. no headache, no dizziness, no difficulty walking or with speech Past Medical/Surgical History: Pelvic adhesions and hydrosalpinx. Oophorectomy, bipolar illness Social History: Single, daily smoker, no alcohol Smoking Status: Heavy smoker Physical Exam: General Appearance: Alert well-developed female mild distress vital signs show initial heart rate 104 and blood pressure 170/114 Eyes: Pupils equal and round no pallor or injection. ENT, Mouth: Mucous membranes are moist. Respiratory: There are no retractions, lungs are clear to auscultation. Cardiovascular: Regular rate and rhythm. Gastrointestinal: Abdomen is soft with periumbilical tenderness. No masses. Normal bowel sounds Neurological: Awake and alert, sensory and motor exams grossly normal. Skin: Warm and dry, no rashes. Musculoskeletal: Neck is supple nontender. Extremities symmetrical, full range of motion. Psychiatric: Patient is oriented X 3, there is no agitation. Constitutional: Initial Vital Signs Temperature (C) 36.2 C 08/17/17 16:43 Heart Rate 104 H 08/17/17 16:43 Respiratory Rate 20 08/17/17 16:43 Blood Pressure 170/114 H 08/17/17 16:43 O2 Sat (%) 100 08/17/17 16:43 O2 Delivery Mode Room Air Allergies/Adverse Reactions: Sulfa (Sulfonamide Antibiotics) Allergy (Verified 08/17/17 16:49) Home Medications: Medication Instructions Recorded Ambien 06/07/17 LISINOPRIL/HYDROCHLOROTHIAZIDE 06/07/17 Paxil 06/07/17 Depakote 06/10/17 Xanax 06/10/17 Promethazine 25 mg Prepack #4 25 mg PO Q4-6PRN PRN #4 btl 08/17/17 [Phenergan 25 mg Prepack #4] Promethazine HCl [Phenergan 25mg 25 mg PO Q4-6PRN PRN #7 tab 08/17/17 (*)] Medical Decision Making Procedures: IV normal saline with initial target of 2 L of saline. Zofran for nausea and vomiting. Toradol for discomfort ED Course/Re-evaluation: Recheck at 6:00 p.m.. Patient is still somewhat nauseated. She has just finished her 1st L. She is given us a urine sample. She will be given Phenergan IV. Recheck again at 6:20 p.m.. Patient feeling better after the Phenergan. She is not nauseated. She is taking oral ice chips Re-evaluation 6:50 p.m.. Patient is resting. No nausea or vomiting 7:05 p.m.. Patient is awake no longer nauseated. She and I discussed laboratory evaluation, treatment plan including criteria for return importance of follow-up further evaluation. She expresses understanding and agreement Differential Diagnosis: I considered gastroenteritis, viral syndrome, food poisoning, electrolyte abnormalities, urinary tract infection, - Data Points Laboratory Results: Laboratory Results 08/17/17 17:00 08/17/17 17:00 08/17/17 08/17/17 08/17/17 18:00 17:00 17:00 WBC RBC Hgb Hct MCV MCH MCHC RDW Plt Count MPV Neut % (Auto) Lymph % (Auto) Nelson % (Auto) Eos % (Auto) Baso % (Auto) Nucleat RBC Rel Count Absolute Neuts (auto) Absolute Lymphs (auto) Absolute Monos (auto) Absolute Eos (auto) Absolute Basos (auto) Absolute Nucleated RBC Immature Gran % Immature Gran # Sodium 135 mEq/L mEq/L (135-145) Potassium 4.0 mEq/L mEq/L (3.5-5.2) Chloride 97 mEq/L mEq/L (97-110) Carbon Dioxide 20 mEq/l L mEq/l (22-31) Anion Gap 18 mEq/L H mEq/L (8-16) BUN 12 mg/dL mg/dL (7-23) Creatinine 0.7 mg/dL mg/dL (0.6-1.0) Estimated GFR > 60 Glucose 164 mg/dL H mg/dL (70-100) Calcium 10.4 mg/dL mg/dL (8.5-10.4) Beta HCG, Qual NEGATIVE Urine Color YELLOW Urine Appearance CLEAR Urine pH 8.5 H (5.0-7.5) Ur Specific [place] 1.015 (1.002-1.030) Urine Protein 1+ H (NEGATIVE) Urine Ketones 1+ H (NEGATIVE) Urine Blood 2+ H (NEGATIVE) Urine Nitrate NEGATIVE (NEGATIVE) Urine Bilirubin NEGATIVE (NEGATIVE) Urine Urobilinogen 0.2 EU EU (0.2-1.0) Ur Leukocyte Esterase NEGATIVE (NEGATIVE) Urine RBC 3-5 /hpf H /hpf (0-3) Urine WBC 3-5 /hpf H /hpf (0-3) Ur Epithelial Cells 1+ /lpf /lpf (NONE-1+) Urine Bacteria 1+ /hpf H /hpf (NONE SEEN) Urine Mucus 1+ /lpf /lpf (NONE-1+) Urine Glucose NEGATIVE (NEGATIVE) 08/17/17 17:00 WBC 12.54 10^3/uL H 10^3/uL (3.80-9.50) RBC 5.12 10^6/uL 10^6/uL (4.18-5.33) Hgb 16.0 g/dL g/dL (12.6-16.3) Hct 43.8 % % (38.0-47.0) MCV 85.5 fL fL (81.5-99.8) MCH 31.3 pg pg (27.9-34.1) MCHC 36.5 g/dL g/dL (32.4-36.7) RDW 11.8 % % (11.5-15.2) Plt Count 401 10^3/uL H 10^3/uL (150-400) MPV 9.7 fL fL (8.7-11.7) Neut % (Auto) 86.7 % H % (39.3-74.2) Lymph % (Auto) 8.9 % L % (15.0-45.0) Nelson % (Auto) 3.7 % L % (4.5-13.0) Eos % (Auto) 0.1 % L % (0.6-7.6) Baso % (Auto) 0.3 % % (0.3-1.7) Nucleat RBC Rel Count 0.0 % % (0.0-0.2) Absolute Neuts (auto) 10.88 10^3/uL H 10^3/uL (1.70-6.50) Absolute Lymphs (auto) 1.11 10^3/uL 10^3/uL (1.00-3.00) Absolute Monos (auto) 0.46 10^3/uL 10^3/uL (0.30-0.80) Absolute Eos (auto) 0.01 10^3/uL L 10^3/uL (0.03-0.40) Absolute Basos (auto) 0.04 10^3/uL 10^3/uL (0.02-0.10) Absolute Nucleated RBC 0.00 10^3/uL 10^3/uL (0-0.01) Immature Gran % 0.3 % % (0.0-1.1) Immature Gran # 0.04 10^3/uL 10^3/uL (0.00-0.10) Sodium Potassium Chloride Carbon Dioxide Anion Gap BUN Creatinine Estimated GFR Glucose Calcium Beta HCG, Qual Urine Color Urine Appearance Urine pH Ur Specific [place] Urine Protein Urine Ketones Urine Blood Urine Nitrate Urine Bilirubin Urine Urobilinogen Ur Leukocyte Esterase Urine RBC Urine WBC Ur Epithelial Cells Urine Bacteria Urine Mucus Urine Glucose Medications Given: Discontinued Medications Sodium Chloride (Ns) 1,000 mls @ 0 mls/hr IV ONCE ONE PRN Reason: Wide Open Stop: 08/17/17 17:11 Last Admin: 08/17/17 17:14 Dose: 1,000 mls Sodium Chloride (Ns) 1,000 mls @ 0 mls/hr IV EDNOW ONE; Wide Open PRN Reason: Protocol Stop: 08/17/17 17:21 Last Admin: 08/17/17 18:08 Dose: 1,000 mls Ketorolac Tromethamine (Toradol) 30 mg IVP EDNOW ONE Stop: 08/17/17 17:21 Last Admin: 08/17/17 17:27 Dose: 30 mg Ondansetron HCl (Zofran) 4 mg IVP EDNOW ONE Stop: 08/17/17 17:11 Last Admin: 08/17/17 17:15 Dose: 4 mg Promethazine HCl (Phenergan) 12.5 mg IVP EDNOW ONE Stop: 08/17/17 18:05 Last Admin: 08/17/17 18:11 Dose: 12.5 mg Departure - Departure Disposition: Home, Routine, Self-Care Clinical Impression: Vomiting Condition: Good Instructions: Acute Nausea and Vomiting (ED) Additional Instructions: Frequent, small sips fluids well nauseated. Gradual diet advancement. Phenergan if needed for nausea and vomiting. Ibuprofen for cramping abdominal discomfort. Return for worsening symptoms. Recheck in 1-2 days for continuing symptoms. Referrals: NONE *PRIMARY CARE P,. [Primary Care Provider] - As per Instructions Naina Ac DO [Doctor of Osteopathy] - 1 day, if not improved Prescriptions: Promethazine 25 mg Prepack #4 [Phenergan 25 mg Prepack #4] 25 mg PO Q4-6PRN PRN #4 btl PRN Reason: Nausea/Vomiting, Use 1st Promethazine HCl [Phenergan 25mg (*)] 25 mg PO Q4-6PRN PRN #7 tab PRN Reason: Nausea/Vomiting, Use 1st
[2017-08-17] MEDS ORDERED: KETOROLAC 30 MG/1 ML SDV IVP ONE (17:20)
[2017-08-17 17:26] LABS: PLATELET COUNT 401 10^3/uL (150-400)
[2017-08-17] MEDS ORDERED: PROMETHAZINE HCL 25 MG/ML INJ IVP ONE (18:04)
[2017-08-17 18:08] VITALS: TEMP 98.9
[2017-08-17 19:18] VITALS: BP 164/113; PULSE 100; RESP 16; O2SAT 96
== END 2017-08-17 19:50 | disposition home or self-care (01) ==
LOC: CED 16:42
DX: R11.10 Vomiting, unspecified (principal); F17.200 Nicotine dependence, unspecified, uncomplicated; E86.9 Volume depletion, unspecified
CPT/HCPCS: 80048-PO; 81003-PO; 81015-PO; 84703-PO; 85025-PO; 96374; J1885; J2405; J2550

== ENCOUNTER 2017-08-19 07:33 | Emergency (ER) | payer MEDICAID ==
[2017-08-19] MEDS ORDERED: NS 1,000 ML IV ONE ×2 (07:45→09:16)
[2017-08-19] MEDS ORDERED: METOCLOPRAMIDE 10 MG/2 ML VIAL IVP ONE (07:46)
[2017-08-19] MEDS ORDERED: LORazepam 2 MG/ML INJ IVP ONE (07:47)
[2017-08-19] MEDS ORDERED: HYOSCYAMINE SULFATE 0.125 MG TAB PO ONE (07:49)
[2017-08-19 07:51] VITALS: TEMP 97.9; O2SAT 95
[2017-08-19] MEDS ORDERED: KETOROLAC 30 MG/1 ML SDV IVP ONE (07:51)
--- NOTE | 2017-08-19 08:12 | EDPHY ---
H & P Stated Complaint: vomiting,abdominal pain right upper quadrant Time Seen by Provider: 08/19/17 07:45 HPI/ROS: This patient reports that after going home Sunday having been treated here for vomiting and loose stools with Phenergan, Toradol IV fluids she felt improved yesterday but awakened at 2:00 a.m. With recurrence of vomiting. Since then she has vomited multiple times and complains of associated crampy belly pain most prominent in the right upper quadrant but also generalized. She states this is moderate to severe intensity and waxes and wanes with no exacerbating factors noted. She also has loose watery stools the persist. She tried a Phenergan pill at 2:15 a.m. And hot bath without improvement and came in by private vehicle for treatment of ongoing symptoms. Patient also had diarrhea the persist up through last night. No bowel movement this morning. ROS: No fevers or chills. HEENT: No recent URI symptoms or other complaints. Pulmonary: No cough shortness of breath Cardiovascular: No chest pain or lightheadedness GI: As per HPI. No hematemesis or dark tarry stools. : No urinary symptoms. 10 point ROS is otherwise negative Source: Patient Exam Limitations: No limitations - Personal History Current Tetanus/Diphtheria Vaccine: No Current Tetanus Diphtheria and Acellular Pertussis (TDAP): Yes - Medical/Surgical History Hx Asthma: No Hx Chronic Respiratory Disease: No Hx Diabetes: No Hx Cardiac Disease: No Hx Renal Disease: No Hx Cirrhosis: No Hx Alcoholism: No Hx HIV/AIDS: No Hx Splenectomy or Spleen Trauma: No Other PMH: HTN. salpingo oopherectomy,bipolar,ovarian cyst. , - Family History Significant Family History: No pertinent family hx - Social History Smoking Status: Heavy smoker Alcohol Use: Occasionally Drug Use: Marijuana - Physical Exam Exam: Vital signs are normal exception of hypertension 148/109 arrival General Appearance: Pleasant mildly obese 36-year-old female Alert, no distress but some discomfort from ongoing nausea and vomiting. Eyes: Pupils equal and round no pallor or injection. ENT, Mouth: Mucous membranes moist. Respiratory: There are no retractions, lungs are clear to auscultation. Cardiovascular: Regular rate and rhythm. Gastrointestinal: Hyperactive bowel sounds with mild right upper quadrant more than generalized tenderness with no guarding or rebound. No organomegaly. Neurological: GCS 15 without focal deficits. Skin: Warm and dry, no rashes. Musculoskeletal: Neck is supple nontender. Extremities are symmetrical, full range of motion. Psychiatric: Mood and affect normal. DIFFERENTIAL DIAGNOSIS: After history and physical exam differential diagnosis was considered for viral gastroenteritis, marijuana hyperemesis, hepatitis, cholecystitis, pancreatitis, bacterial colitis, autoimmune colitis, IBS Constitutional: Initial Vital Signs Temperature (C) 36.6 C 08/19/17 07:48 Heart Rate 91 08/19/17 07:48 Respiratory Rate 20 08/19/17 07:48 Blood Pressure 148/109 H 08/19/17 07:48 O2 Sat (%) 95 08/19/17 07:48 O2 Delivery Mode Room Air Allergies/Adverse Reactions: Sulfa (Sulfonamide Antibiotics) Allergy (Verified 08/19/17 07:46) Home Medications: Medication Instructions Recorded Ambien 06/07/17 LISINOPRIL/HYDROCHLOROTHIAZIDE 06/07/17 Paxil 06/07/17 Depakote 06/10/17 Xanax 06/10/17 Promethazine HCl [Phenergan 25mg 25 mg PO Q4-6PRN PRN #7 tab 08/17/17 (*)] Ondansetron Odt [Zofran Odt] 4 - 8 mg PO Q4PRN PRN #4 tab 08/19/17 Promethazine HCl [Phenergan 50mg 50 mg NC Q6 PRN #4 suppr 08/19/17 supp (*)] Medical Decision Making ED Course/Re-evaluation: IV normal saline bolus CBC with minimal leukocytosis, comp metabolic panel is normal. Lipase is normal. Urinalysis reveals hematuria consistent with menses. No significant findings for UTI. Urine was -2 days ago. Today's test is pending. Reglan and Benadryl IV Ativan IV Toradol IV Levsin sublingual Patient had ongoing nausea and abdominal cramping thereafter with further treatment with Zofran 0 DT, and Haldol 2.5 mg IV finally with resolution of her nausea and improvement in her abdominal pain down to 4 to 5/10. She tolerated p. o. Intake thereafter without emesis. I encouraged the patient to stop marijuana explaining correlation between regular marijuana use and vomiting syndromes. Discussion: Patient with vomiting, upper abdominal cramping and dehydration. Workup ruled out hepatitis, pancreatitis or other red flag findings. Will treat her with a combination of Phenergan suppositories and Zofran ODT for any recurrent symptoms. She will follow up with primary care physician for any ongoing symptoms understands need to return emergency department for any worsening despite treatment plan. - Data Points Laboratory Results: Laboratory Results 08/19/17 08:20 08/19/17 08:20 08/19/17 08/19/17 08/19/17 08:20 08:20 08:20 WBC 9.66 10^3/uL H 10^3/uL (3.80-9.50) RBC 4.46 10^6/uL 10^6/uL (4.18-5.33) Hgb 13.9 g/dL g/dL (12.6-16.3) Hct 39.2 % % (38.0-47.0) MCV 87.9 fL fL (81.5-99.8) MCH 31.2 pg pg (27.9-34.1) MCHC 35.5 g/dL g/dL (32.4-36.7) RDW 12.0 % % (11.5-15.2) Plt Count 290 10^3/uL D 10^3/uL (150-400) MPV 9.7 fL fL (8.7-11.7) Neut % (Auto) 71.2 % % (39.3-74.2) Lymph % (Auto) 19.4 % % (15.0-45.0) [place] % (Auto) 6.7 % % (4.5-13.0) Eos % (Auto) 1.8 % % (0.6-7.6) Baso % (Auto) 0.5 % % (0.3-1.7) Nucleat RBC Rel Count 0.0 % % (0.0-0.2) Absolute Neuts (auto) 6.88 10^3/uL H 10^3/uL (1.70-6.50) Absolute Lymphs (auto) 1.87 10^3/uL 10^3/uL (1.00-3.00) Absolute Monos (auto) 0.65 10^3/uL 10^3/uL (0.30-0.80) Absolute Eos (auto) 0.17 10^3/uL 10^3/uL (0.03-0.40) Absolute Basos (auto) 0.05 10^3/uL 10^3/uL (0.02-0.10) Absolute Nucleated RBC 0.00 10^3/uL 10^3/uL (0-0.01) Immature Gran % 0.4 % % (0.0-1.1) Immature Gran # 0.04 10^3/uL 10^3/uL (0.00-0.10) Sodium 138 mEq/L mEq/L (135-145) Potassium 3.9 mEq/L mEq/L (3.5-5.2) Chloride 104 mEq/L mEq/L (97-110) Carbon Dioxide 22 mEq/l mEq/l (22-31) Anion Gap 12 mEq/L mEq/L (8-16) BUN 13 mg/dL mg/dL (7-23) Creatinine 0.7 mg/dL mg/dL (0.6-1.0) Estimated GFR > 60 Glucose 121 mg/dL H mg/dL (70-100) Calcium 9.3 mg/dL mg/dL (8.5-10.4) Total Bilirubin 0.4 mg/dL mg/dL (0.1-1.4) AST 17 IU/L IU/L (14-46) ALT 25 IU/L IU/L (9-52) Alkaline Phosphatase 48 IU/L IU/L (38-126) Total Protein 7.4 g/dL g/dL (6.3-8.2) Albumin 4.1 g/dL g/dL (3.5-5.0) Lipase 104 IU/L IU/L (23-300) Urine Color YELLOW Urine Appearance CLOUDY Urine pH 5.5 (5.0-7.5) Ur Specific [place] 1.025 (1.002-1.030) Urine Protein NEGATIVE (NEGATIVE) Urine Ketones NEGATIVE (NEGATIVE) Urine Blood 3+ H (NEGATIVE) Urine Nitrate NEGATIVE (NEGATIVE) Urine Bilirubin NEGATIVE (NEGATIVE) Urine Urobilinogen 0.2 EU EU (0.2-1.0) Ur Leukocyte Esterase NEGATIVE (NEGATIVE) Urine RBC 50-182 /hpf H /hpf (0-3) Urine WBC 3-5 /hpf H /hpf (0-3) Ur Epithelial Cells 2+ /lpf H /lpf (NONE-1+) Ur Renal Epithelial Cell OCCASIONAL /hpf H /hpf (NONE SEEN) Amorphous Sediment 1+ /hpf /hpf (NONE-1+) Urine Bacteria 1+ /hpf H /hpf (NONE SEEN) Urine Mucus TRACE /lpf /lpf (NONE-1+) Urine Glucose NEGATIVE (NEGATIVE) Medications Given: Discontinued Medications Diphenhydramine HCl (Benadryl Injection) 25 mg IVP EDNOW ONE Stop: 08/19/17 07:48 Last Admin: 08/19/17 08:07 Dose: 25 mg Haloperidol Lactate (Haldol Injection) 2.5 mg IVP EDNOW ONE Stop: 08/19/17 09:48 Last Admin: 08/19/17 09:53 Dose: 2.5 mg Hyoscyamine Sulfate (Levsin, Hyomax-Sl) 0.25 mg PO EDNOW ONE Stop: 08/19/17 07:50 Last Admin: 08/19/17 08:18 Dose: 0.25 mg Sodium Chloride (Ns) 1,000 mls @ 0 mls/hr IV EDNOW ONE; Wide Open PRN Reason: Protocol Stop: 08/19/17 07:46 Last Admin: 08/19/17 08:15 Dose: 1,000 mls Sodium Chloride (Ns) 1,000 mls @ 0 mls/hr IV ONCE ONE PRN Reason: Wide Open Stop: 08/19/17 09:17 Last Admin: 08/19/17 09:24 Dose: 1,000 mls Ketorolac Tromethamine (Toradol) 30 mg IVP EDNOW ONE Stop: 08/19/17 07:52 Last Admin: 08/19/17 08:10 Dose: 30 mg Lorazepam (Ativan Injection) 1 mg IVP EDNOW ONE Stop: 08/19/17 07:48 Last Admin: 08/19/17 08:08 Dose: 1 mg Metoclopramide HCl (Reglan Injection) 5 mg IVP EDNOW ONE Stop: 08/19/17 07:47 Last Admin: 08/19/17 08:04 Dose: 5 mg Ondansetron HCl (Zofran Odt) 8 mg PO EDNOW ONE Stop: 08/19/17 09:24 Last Admin: 08/19/17 09:31 Dose: 8 mg Departure - Departure Disposition: Home, Routine, Self-Care Clinical Impression: Upper abdominal pain, Dehydration Vomiting Qualifiers: Vomiting type: unspecified Vomiting Intractability: non-intractable Nausea presence: with nausea Qualified Code(s): R11.2 - Nausea with vomiting, unspecified Condition: Good Instructions: Acute Nausea and Vomiting (ED) Additional Instructions: Diagnoses:. Vomiting 2. Upper abdominal pain 3. Dehydration New labs today reveal no evidence of hepatitis, pancreatitis or other concerning findings. Plan: Phenergan suppositories or pills and Zofran if needed for nausea or vomiting Consider stopping marijuana as it builds up in fatty tissues and can cause vomiting syndromes. Follow-up with primary care physician for any ongoing symptoms Return for any significant worsening despite the treatment plan. Referrals: NONE *PRIMARY CARE P,. [Primary Care Provider] - As per Instructions Liyah Aguero MD [Medical Doctor] - As per Instructions Prescriptions: Ondansetron Odt [Zofran Odt] 4 - 8 mg PO Q4PRN PRN #4 tab PRN Reason: Vomiting Promethazine HCl [Phenergan 50mg supp (*)] 50 mg NC Q6 PRN #4 suppr PRN Reason: vomiting
[2017-08-19 08:28] LABS: PLATELET COUNT 290 10^3/uL (150-400)
[2017-08-19] MEDS ORDERED: ONDANSETRON DISINTEGRATING 4 MG TAB PO ONE (09:23)
[2017-08-19] MEDS ORDERED: ONDANSETRON DISINTEGRATING 4 MG TAB ONE (09:29)
[2017-08-19] MEDS ORDERED: HALOPERIDOL LACT 5 MG/ML INJ IVP ONE (09:47)
[2017-08-19 10:54] VITALS: BP 152/92; PULSE 100; RESP 14
== END 2017-08-19 10:51 | disposition home or self-care (01) ==
LOC: CED 07:33
DX: R10.11 Right upper quadrant pain (principal); E86.0 Dehydration; E86.9 Volume depletion, unspecified; I10 Essential (primary) hypertension; F17.200 Nicotine dependence, unspecified, uncomplicated
CPT/HCPCS: 80053-PO; 81003-PO; 81015-PO; 81025-PO; 83690-PO; 85025-PO; 96374; J1200; J1630; J1885; J2060; J2765

== ENCOUNTER 2017-09-25 16:51 | Emergency (ER) | payer SELFPAY ==
--- NOTE | 2017-09-25 17:14 | EDPHY ---
H & P Stated Complaint: R pelvic, lower quad pain x 1 day Time Seen by Provider: 09/25/17 17:13 HPI/ROS: HPI CHIEF COMPLAINT: Abdominal pain HISTORY OF PRESENT ILLNESS: Patient very pleasant 36-year-old female, history of abdominal pain and pelvic pain pelvic adhesions, in June she had a her flipping tubes removed, additionally her left ovary was already previously removed. She states Dr. Ac, removed most of her right ovary but left a small amount of it. She states that approximately 3 o'clock close 2 hr ago she developed sudden-onset right adnexal pain. And had some vaginal bleeding. Pain is still persistent the right adnexa. She denies any vomiting, fever, chest pain or shortness of breath. Pain is located right lower pelvic region. Past Medical History: Bipolar disorder, pelvic adhesions, hydrosalpinx, oophorectomy Past Surgical History: Oophorectomy Social History: Denies daily use of drugs alcohol tobacco. Family History: Noncontributory ROS REVIEW OF SYSTEMS: A comprehensive 10 point review of systems is otherwise negative aside from elements mentioned in the history of present illness. Exam Constitutional appears well nontoxic no acute distress, triage nursing summary reviewed, vital signs reviewed, awake/alert. Eyes normal conjunctivae and sclera, EOMI, PERRLA. HENT normal inspection, atraumatic, moist mucus membranes, no epistaxis, neck supple/ no meningismus, no raccoon eyes. Respiratory clear to auscultation bilaterally, normal breath sounds, no respiratory distress, no wheezing. Cardiovascular rate normal, regular rhythm, no murmur, no edema, distal pulses normal. Gastrointestinal mild tender palpation the right adnexa. soft, non-tender, no rebound, no guarding, normal bowel sounds, no distension, no pulsatile mass. Genitourinary no CVA tenderness. Musculoskeletal no midline vertebral tenderness, full range of motion, no calf swelling, no tenderness of extremities, no meningismus, good pulses, neurovascularly intact. Skin pink, warm, & dry, no rash, skin atraumatic. Neurologic awake, alert and oriented x 3, AAOx3, moves all 4 extremities equally, motor intact, sensory intact, CN II-XII intact, normal cerebellar, normal vision, normal speech. Psychiatric normal mood/affect. Heme/Lymph/Immune no lymphadenopathy. Differential diagnosis includes but is not limited to and in no particular order : Ovarian torsion, ruptured ovarian cyst, PID, , ectopic Bowel obstruction, appendicitis, gallbladder disease, diverticulitis, colitis, enteritis, perforated viscus, gastritis, GERD, esophagitis, urinary tract infection, pyelonephritis, kidney stones Medical Decision Making: Plan for this patient IV establishment blood draw, ultrasound pelvic to evaluate ovary, basic blood work, IV fluids, IV pain medicine, re-evaluate. Check UA. Re-evaluation: Ultrasound of the pelvis shows right ovarian cyst hemorrhagic. Slightly increased in size from previous ultrasound. No evidence of torsion. No evidence of significant free fluid. Also seen on the ultrasound is hydrosalpinx bilaterally similar to previous ultrasound. I went over the patient's ultrasound results and blood work with her. She understands she has a right ovarian cyst. No torsion. Pain is well controlled after IV Dilaudid. Do recommend she follows up with her OBGYN. And return precautions discussed with her. She understands return emergency room if develops worsening abdominal pain fever vomiting. Source: Patient - Personal History LMP (Females 10-55): Unknown Current Tetanus/Diphtheria Vaccine: No Current Tetanus Diphtheria and Acellular Pertussis (TDAP): No - Medical/Surgical History Hx Asthma: No Hx Chronic Respiratory Disease: No Hx Diabetes: No Hx Cardiac Disease: No Hx Renal Disease: No Hx Cirrhosis: No Hx Alcoholism: No Hx HIV/AIDS: No Hx Splenectomy or Spleen Trauma: No Other PMH: HTN, biploar. salpingo oopherectomy,bipolar,ovarian cyst. , - Social History Smoking Status: Heavy smoker Constitutional: Initial Vital Signs Temperature (C) 37.3 C 09/25/17 16:54 Heart Rate 100 09/25/17 16:54 Respiratory Rate 16 09/25/17 16:54 Blood Pressure 107/78 09/25/17 16:54 O2 Sat (%) 97 09/25/17 16:54 O2 Delivery Mode Room Air Allergies/Adverse Reactions: Sulfa (Sulfonamide Antibiotics) Allergy (Verified 08/19/17 07:46) Home Medications: Medication Instructions Recorded Ambien 06/07/17 LISINOPRIL/HYDROCHLOROTHIAZIDE 06/07/17 Paxil 06/07/17 Depakote 06/10/17 Xanax 06/10/17 Promethazine HCl [Phenergan 25mg 25 mg PO Q4-6PRN PRN #7 tab 08/17/17 (*)] Ondansetron Odt [Zofran Odt] 4 - 8 mg PO Q4PRN PRN #4 tab 08/19/17 Promethazine HCl [Phenergan 50mg 50 mg [place] Q6 PRN #4 suppr 08/19/17 supp (*)] Hydrocodone/APAP 5/325 [[place] 1 - 2 tab PO Q4H PRN #10 tab 09/25/17 5/325] Ibuprofen [Motrin (*)] 800 mg PO Q6-8PRN #10 tab 09/25/17 Medical Decision Making - Diagnostics Imaging Results: Imaging Impressions Pelvic/Renal Ultrasound 09/25/17 17:23 Impression: 1. Normal-appearing uterus. 2. Maturation of hemorrhagic cyst right ovary. 3. Bilateral hydrosalpinx suggested stable to slightly improved since the prior study. Findings discussed with Suresh Padilla MD at 18:28 hour, 09/25/2017. - Data Points Laboratory Results: Laboratory Results 09/25/17 17:37 09/25/17 17:37 09/25/17 09/25/17 09/25/17 18:00 17:37 17:37 WBC RBC Hgb Hct MCV MCH MCHC RDW Plt Count MPV Neut % (Auto) Lymph % (Auto) [place] % (Auto) Eos % (Auto) Baso % (Auto) Nucleat RBC Rel Count Absolute Neuts (auto) Absolute Lymphs (auto) Absolute Monos (auto) Absolute Eos (auto) Absolute Basos (auto) Absolute Nucleated RBC Immature Gran % Immature Gran # Sodium 134 mEq/L L mEq/L (135-145) Potassium 4.4 mEq/L mEq/L (3.5-5.2) Chloride 98 mEq/L mEq/L (97-110) Carbon Dioxide 25 mEq/l mEq/l (22-31) Anion Gap 11 mEq/L mEq/L (8-16) BUN 13 mg/dL mg/dL (7-23) Creatinine 0.7 mg/dL mg/dL (0.6-1.0) Estimated GFR > 60 Glucose 81 mg/dL mg/dL (70-100) Calcium 8.9 mg/dL mg/dL (8.5-10.4) Total Bilirubin 0.4 mg/dL mg/dL (0.1-1.4) Conjugated Bilirubin 0.4 mg/dL mg/dL (0.0-0.5) Unconjugated Bilirubin 0.0 mg/dL mg/dL (0.0-1.1) AST 19 IU/L IU/L (14-46) ALT 32 IU/L IU/L (9-52) Alkaline Phosphatase 43 IU/L IU/L (38-126) Total Protein 6.8 g/dL g/dL (6.3-8.2) Albumin 4.1 g/dL g/dL (3.5-5.0) Lipase 50 IU/L IU/L (23-300) Beta HCG, Qual NEGATIVE Urine Color PALE YELLOW Urine Appearance CLEAR Urine pH 7.0 (5.0-7.5) Ur Specific [place] 1.005 (1.002-1.030) Urine Protein NEGATIVE (NEGATIVE) Urine Ketones NEGATIVE (NEGATIVE) Urine Blood NEGATIVE (NEGATIVE) Urine Nitrate NEGATIVE (NEGATIVE) Urine Bilirubin NEGATIVE (NEGATIVE) Urine Urobilinogen NEGATIVE EU EU (0.2-1.0) Ur Leukocyte Esterase NEGATIVE (NEGATIVE) Urine Glucose NEGATIVE (NEGATIVE) 09/25/17 17:37 WBC 4.88 10^3/uL 10^3/uL (3.80-9.50) RBC 4.46 10^6/uL 10^6/uL (4.18-5.33) Hgb 14.0 g/dL g/dL (12.6-16.3) Hct 40.0 % % (38.0-47.0) MCV 89.7 fL fL (81.5-99.8) MCH 31.4 pg pg (27.9-34.1) MCHC 35.0 g/dL g/dL (32.4-36.7) RDW 12.0 % % (11.5-15.2) Plt Count 257 10^3/uL 10^3/uL (150-400) MPV 9.4 fL fL (8.7-11.7) Neut % (Auto) 38.4 % L % (39.3-74.2) Lymph % (Auto) 46.9 % H % (15.0-45.0) [place] % (Auto) 9.2 % % (4.5-13.0) Eos % (Auto) 4.9 % % (0.6-7.6) Baso % (Auto) 0.4 % % (0.3-1.7) Nucleat RBC Rel Count 0.0 % % (0.0-0.2) Absolute Neuts (auto) 1.87 10^3/uL 10^3/uL (1.70-6.50) Absolute Lymphs (auto) 2.29 10^3/uL 10^3/uL (1.00-3.00) Absolute Monos (auto) 0.45 10^3/uL 10^3/uL (0.30-0.80) Absolute Eos (auto) 0.24 10^3/uL 10^3/uL (0.03-0.40) Absolute Basos (auto) 0.02 10^3/uL 10^3/uL (0.02-0.10) Absolute Nucleated RBC 0.00 10^3/uL 10^3/uL (0-0.01) Immature Gran % 0.2 % % (0.0-1.1) Immature Gran # 0.01 10^3/uL 10^3/uL (0.00-0.10) Sodium Potassium Chloride Carbon Dioxide Anion Gap BUN Creatinine Estimated GFR Glucose Calcium Total Bilirubin Conjugated Bilirubin Unconjugated Bilirubin AST ALT Alkaline Phosphatase Total Protein Albumin Lipase Beta HCG, Qual Urine Color Urine Appearance Urine pH Ur Specific [place] Urine Protein Urine Ketones Urine Blood Urine Nitrate Urine Bilirubin Urine Urobilinogen Ur Leukocyte Esterase Urine Glucose Medications Given: Discontinued Medications Hydromorphone HCl (Dilaudid) 0.5 mg IVP EDNOW ONE Stop: 09/25/17 17:16 Last Admin: 09/25/17 18:03 Dose: 0.5 mg Sodium Chloride (Ns) 1,000 mls @ 0 mls/hr IV EDNOW ONE; Wide Open PRN Reason: Protocol Stop: 09/25/17 17:16 Last Admin: 09/25/17 18:03 Dose: 1,000 mls Ondansetron HCl (Zofran) 4 mg IVP EDNOW ONE Stop: 09/25/17 17:16 Last Admin: 09/25/17 18:02 Dose: 4 mg Departure - Departure Disposition: Home, Routine, Self-Care Clinical Impression: Ovarian cyst Qualifiers: Laterality: right Qualified Code(s): N83.201 - Unspecified ovarian cyst, right side Condition: Good Instructions: Ovarian Cyst (ED) Additional Instructions: 1. Return emergency room if develops worsening abdominal pain fever vomiting. 2. Motrin for mild pain. 3. [place] for severe pain. 4. Please follow up with her OBGYN. 5. Return if worse. Referrals: NONE *PRIMARY CARE P,. [Primary Care Provider] - As per Instructions Naina Ac DO [Doctor of Osteopathy] - As per Instructions Prescriptions: Hydrocodone/APAP 5/325 [[place] 5/325] 1 - 2 tab PO Q4H PRN #10 tab PRN Reason: Pain, Moderate Ibuprofen [Motrin (*)] 800 mg PO Q6-8PRN #10 tab
[2017-09-25] MEDS ORDERED: ONDANSETRON 4 MG/2 ML VIAL IVP ONE (17:15)
[2017-09-25] MEDS ORDERED: NS 1,000 ML IV ONE (17:15)
[2017-09-25] MEDS ORDERED: HYDROmorphONE/DILAUDID 2 MG/ML INJ IVP ONE (17:15)
[2017-09-25 17:48] LABS: PLATELET COUNT 257 10^3/uL (150-400)
[2017-09-25 18:58] VITALS: BP 102/65
== END 2017-09-25 18:58 | disposition home or self-care (01) ==
DX: N83.201 Unspecified ovarian cyst, right side (principal); E86.9 Volume depletion, unspecified; F17.200 Nicotine dependence, unspecified, uncomplicated
CPT/HCPCS: 96374; J1170; J2405

== ENCOUNTER 2017-10-14 15:23 | Emergency (ER) | payer SELFPAY ==
[2017-10-14] MEDS ORDERED: NS 1,000 ML IV ONE (16:03)
[2017-10-14] MEDS ORDERED: ONDANSETRON 4 MG/2 ML VIAL IVP ONE (16:03)
[2017-10-14] MEDS ORDERED: KETOROLAC 30 MG/1 ML SDV IVP ONE (16:03)
[2017-10-14 16:16] LABS: PLATELET COUNT 318 10^3/uL (150-400)
--- NOTE | 2017-10-14 16:21 | EDPHY ---
H & P Time Seen by Provider: 10/14/17 15:56 HPI/ROS: HPI Right lower abdominal pain. 36-year-old female by private vehicle. She complains of persistent right adnexal pain since yesterday afternoon. She was seen here in the emergency department for a similar complaint on September 25. She had a maturing right-sided ovarian cyst at that time diagnosed on pelvic ultrasound. She then saw her OBGYN at [facility] on September 26. She was placed on a control at that time. She describes her pain as aching and cramping. She is currently menstruating. Denies any urinary complaints. No vaginal discharge. ROS: Constitutional: No fever, no chills. No weakness. Eyes: No discharge. No changes in vision. ENT: No sore throat. No nasal congestion or rhinorrhea. Respiratory: No cough. No shortness of breath. Cardiac: No chest pain, no palpitations. Gastrointestinal: No abdominal pain, no vomiting, no diarrhea. Genitourinary: No hematuria. No dysuria or increased frequency with urination. Musculoskeletal: No back pain. No neck pain. No myalgias or arthralgias. Skin: No rashes. Neurological: No headache. No focal weakness or altered sensation. Past medical history: Hypertension, bipolar, oophorectomy, ovarian cysts. . Social history: Nonsmoker. No alcohol. Here by herself. Physical Exam: General Appearance: Alert, no distress. This patient is responding to questions appropriately and in full sentences. This patient appears well- hydrated and well-nourished. Eyes: Pupils equal and round no pallor or injection. No lid edema, erythema or injection. Respiratory: There are no retractions, lungs are clear to auscultation with good air movement bilaterally. Cardiovascular: Regular rate and rhythm. No murmur. Gastrointestinal: Abdomen is soft right lower adnexal tenderness on palpation, no masses, bowel sounds normal. No focal tenderness at McBurney's point. No Ma sign. Neurological: Motor sensory function is grossly intact. Cranial nerves are normal. Gait is normal. Skin: Warm and dry, no rashes. Musculoskeletal: No CVA tenderness on palpation. Extremities are symmetrical. All joints range without pain or impingement. Psychiatric: No agitation. No depression. Database: EKG: Imaging: Pelvic ultrasound: Stable ultrasound when compared to previous studies. No torsion. Involuting ovarian cyst significantly smaller than prior study. No acute pathology. Results were discussed with staff radiologist Dr. Cal Terry. CT scan of abdomen and pelvis with IV contrast: This is a negative study. The appendix is well visualized and is normal. No other pathology. Results were discussed with staff radiologist Dr. Cal Terry. Procedures: Emergency department course: IV placed. Triage vitals reviewed. She was moderately hypertensive and mildly tachycardic. Vital signs otherwise normal. She was started on IV normal saline with 500 cc to 1 L to be given over the next 1-2 hours. She was given 30 mg of IV Toradol and 4 mg of IV Zofran initially. She will be sent for a pelvic ultrasound shortly. She consents to above. 5:35 p.m., patient re-evaluated. She is tearful and emotional. She states that her pain has not improved with IV Toradol. Repeat exam she has vague right lower quadrant tenderness on palpation. She will be given 0.5 mg of IV hydromorphone. This will be repeated x1 as needed. She consents for CT imaging to evaluate for possible appendicitis verses ureterolithiasis. 6:25 p.m., patient re-evaluated. Sitting upright in the gurney. She appears more comfortable at this time. States her pain has improved with above medications. She is awaiting CT of her abdomen and pelvis. 7:30 p.m., patient re-evaluated. She appears comfortable at this time. Repeat abdominal exam she is soft and without significant tenderness on palpation. Results of her CT scan were discussed with her. She was given 2, 0.5 mg doses of IV hydromorphone. Her workup in the emergency department has been reassuring. I discussed the results of her testing in detail with her. At this time she does feel comfortable going home and I feel she is safe for discharge. She will follow up with her OBGYN on Sunday for re-evaluation. Return to emergency department precautions have been thoroughly reviewed with her. All of her questions were answered. She was discharged from the emergency department in good condition. Differential Diagnosis: The differential diagnosis on this patient includes but is not limited to ruptured ovarian cyst. Appendicitis, ovarian torsion, ectopic , tubo- ovarian abscess unlikely. This represents a partial list of diagnoses considered. These considerations are based on history, physical exam, past history, reassessment and diagnostic testing. Smoking Status: Heavy smoker Constitutional: Initial Vital Signs Temperature (C) 36.8 C 10/14/17 15:35 Heart Rate 105 H 10/14/17 15:35 Respiratory Rate 16 10/14/17 15:35 Blood Pressure 155/119 H 10/14/17 15:35 O2 Sat (%) 95 10/14/17 15:35 O2 Delivery Mode Room Air Allergies/Adverse Reactions: Sulfa (Sulfonamide Antibiotics) Allergy (Verified 08/19/17 07:46) Home Medications: Medication Instructions Recorded Ambien 06/07/17 LISINOPRIL/HYDROCHLOROTHIAZIDE 06/07/17 Paxil 06/07/17 Depakote 06/10/17 Xanax 06/10/17 Blisovi Fe 1-20 Tablet 10/14/17 Medical Decision Making - Data Points Laboratory Results: Laboratory Results 10/14/17 16:10 10/14/17 16:10 Medications Given: Discontinued Medications Hydromorphone HCl (Dilaudid) 0.5 mg IVP EDNOW ONE Stop: 10/14/17 17:38 Last Admin: 10/14/17 17:47 Dose: 0.5 mg Hydromorphone HCl (Dilaudid) 0.5 mg IVP EDNOW ONE Stop: 10/14/17 19:17 Last Admin: 10/14/17 19:17 Dose: 0.5 mg Sodium Chloride (Ns) 1,000 mls @ 0 mls/hr IV ONCE ONE; Wide Open PRN Reason: Protocol Stop: 10/14/17 16:04 Last Admin: 10/14/17 16:16 Dose: 1,000 mls Ketorolac Tromethamine (Toradol) 30 mg IVP EDNOW ONE Stop: 10/14/17 16:04 Last Admin: 10/14/17 16:16 Dose: 30 mg Ondansetron HCl (Zofran) 4 mg IVP EDNOW ONE Stop: 10/14/17 16:04 Last Admin: 10/14/17 16:16 Dose: 4 mg Departure - Departure Disposition: Home, Routine, Self-Care Clinical Impression: Ovarian cyst, Abdominal pain, RLQ Instructions: Ovarian Cyst (ED), How to Stop Smoking (ED) Additional Instructions: Read and follow provided instructions. Follow-up with your OBGYN as discussed on Sunday for re-evaluation. You can start taking ibuprofen tomorrow morning. Ibuprofen dosin mg every 6 hours with meals for the next 3 days only. Take only as needed for pain. Return to the emergency department for worsening pain, fever, vaginal bleeding, vomiting or other serious concerns. Referrals: Naina Ac DO [Primary Care Provider] - As per Instructions Stand Alone Forms: Work Excuse
[2017-10-14] MEDS ORDERED: HYDROmorphONE/DILAUDID 2 MG/ML INJ IVP ONE ×2 (17:37→19:16)
[2017-10-14] MEDS ORDERED: HYDROmorphONE/DILAUDID 1 MG/ML INJ ONE ×2 (17:46→19:14)
[2017-10-14] MEDS ORDERED: IOPAMIDOL (ISOVUE-300) 100 ML BTL ONE (18:43)
[2017-10-14 19:32] VITALS: BP 142/84
== END 2017-10-14 19:41 | disposition home or self-care (01) ==
DX: N83.201 Unspecified ovarian cyst, right side (principal); I10 Essential (primary) hypertension; F17.200 Nicotine dependence, unspecified, uncomplicated; E86.9 Volume depletion, unspecified
CPT/HCPCS: 96374; J1170; J1885; J2405; Q9967

== ENCOUNTER 2018-02-18 20:20 | Emergency (ER) | payer MEDICAID ==
[2018-02-18] MEDS ORDERED: KETOROLAC 15 MG/1 ML SDV IVP ONE (21:01)
--- NOTE | 2018-02-18 21:04 | EDPHY ---
H & P Stated Complaint: RLQ pain, N/V/D, black stool xfew days Time Seen by Provider: 02/18/18 20:29 HPI/ROS: CHIEF COMPLAINT: Right lower quadrant pain, diagnosed with ovarian cyst yesterday HISTORY OF PRESENT ILLNESS: 37-year-old female presents with right lower quadrant pain. She was seen at [facility] yesterday and diagnosed with a right ovarian cyst. She was placed on ibuprofen and Tylenol. Continues to have right lower quadrant pain. This evening she also had an episode of vaginal discharge and became concerned. Denies vomiting, diarrhea or fever. REVIEW OF SYSTEMS: complete 10 point ROS reviewed and is negative except for the noted elements in the HPI - Personal History LMP (Females 10-55): 1-7 Days Ago Current Tetanus/Diphtheria Vaccine: Yes - Medical/Surgical History Hx Asthma: No Hx Chronic Respiratory Disease: No Hx Diabetes: No Hx Cardiac Disease: No Hx Renal Disease: No Hx Cirrhosis: No Hx Alcoholism: No Hx HIV/AIDS: No Hx Splenectomy or Spleen Trauma: No Other PMH: HTN, biploar. salpingo oopherectomy,bipolar,ovarian cyst. , - Social History Smoking Status: Heavy smoker - Physical Exam Exam: General Appearance: Alert, pleasant, does not appear in pain Eyes: Pupils equal and round, no conjunctival pallor or injection ENT, Mouth: Mucous membranes moist Neck: Normal inspection Respiratory: Lungs are clear to auscultation Cardiovascular: Regular rate and rhythm Gastrointestinal: Abdomen is soft and nontender Neurological: A&O, nonfocal, normal gait Skin: Warm and dry Extremities: Nontender, no pedal edema Psychiatric: Mood and affect normal Constitutional: Initial Vital Signs Temperature (C) 37.1 C 02/18/18 20:22 Heart Rate 113 H 02/18/18 20:22 Respiratory Rate 16 02/18/18 20:22 Blood Pressure 132/76 H 02/18/18 20:22 O2 Sat (%) 96 02/18/18 20:22 O2 Delivery Mode Room Air Allergies/Adverse Reactions: Sulfa (Sulfonamide Antibiotics) Allergy (Verified 02/18/18 20:24) Home Medications: Medication Instructions Recorded Ambien 06/07/17 LISINOPRIL/HYDROCHLOROTHIAZIDE 06/07/17 Paxil 06/07/17 Depakote 06/10/17 Xanax 06/10/17 Blisovi Fe 1-20 Tablet 10/14/17 Medical Decision Making ED Course/Re-evaluation: This patient presents with right lower quadrant pain. She does not appear in pain on my evaluation. I reviewed Danilo 0. She has been seen twice in the past 48 hr at [facility]. On the 1st visit she was diagnosed with a right follicular cyst. She was given Toradol IV for pain. She was seen yesterday for vaginal discharge and was diagnosed with a yeast infection. GC/ chlamydia cultures are negative to date. I also reviewed the [place] prescriptive history and this patient has multiple prescriptions for narcotics in the past several months. I discussed these findings with the patient and told her that I would not be able to give her narcotics. She became upset and tearful. Toradol 30 mg IV given. I do not feel that further evaluation is indicated today. I do not think that she has appendicitis or other alternative etiology for pain. Tylenol 650 mg orally given prior to discharge. Abdominal exam remains unchanged. Differential Diagnosis: Differential diagnosis includes though it is not limited to ectopic , ovarian cyst, ovarian torsion, PID, UTI, appendicitis. - Data Points Laboratory Results: Laboratory Results 02/18/18 21:00 02/18/18 21:00 02/18/18 02/18/18 02/18/18 21:00 21:00 21:00 WBC RBC Hgb Hct MCV MCH MCHC RDW Plt Count MPV Neut % (Auto) Lymph % (Auto) Jones % (Auto) Eos % (Auto) Baso % (Auto) Nucleat RBC Rel Count Absolute Neuts (auto) Absolute Lymphs (auto) Absolute Monos (auto) Absolute Eos (auto) Absolute Basos (auto) Absolute Nucleated RBC Immature Gran % Immature Gran # Sodium 138 mEq/L mEq/L (135-145) Potassium 3.4 mEq/L mEq/L (3.3-5.0) Chloride 103 mEq/L mEq/L (97-110) Carbon Dioxide 26 mEq/l mEq/l (22-31) Anion Gap 9 mEq/L mEq/L (8-16) BUN 11 mg/dL mg/dL (7-23) Creatinine 0.6 mg/dL mg/dL (0.6-1.0) Estimated GFR > 60 Glucose 114 mg/dL H mg/dL (70-100) Calcium 9.4 mg/dL mg/dL (8.5-10.4) Beta HCG, Qual NEGATIVE Urine Color YELLOW Urine Appearance CLEAR Urine pH 7.0 (5.0-7.5) Ur Specific [place] 1.011 (1.002-1.030) Urine Protein NEGATIVE (NEGATIVE) Urine Ketones NEGATIVE (NEGATIVE) Urine Blood NEGATIVE (NEGATIVE) Urine Nitrate NEGATIVE (NEGATIVE) Urine Bilirubin NEGATIVE (NEGATIVE) Urine Urobilinogen NEGATIVE EU EU (0.2-1.0) Ur Leukocyte Esterase NEGATIVE (NEGATIVE) Urine Glucose NEGATIVE (NEGATIVE) 02/18/18 21:00 WBC 6.33 10^3/uL 10^3/uL (3.80-9.50) RBC 4.25 10^6/uL 10^6/uL (4.18-5.33) Hgb 13.4 g/dL g/dL (12.6-16.3) Hct 37.6 % L % (38.0-47.0) MCV 88.5 fL fL (81.5-99.8) MCH 31.5 pg pg (27.9-34.1) MCHC 35.6 g/dL g/dL (32.4-36.7) RDW 11.8 % % (11.5-15.2) Plt Count 333 10^3/uL 10^3/uL (150-400) MPV 9.3 fL fL (8.7-11.7) Neut % (Auto) 55.9 % % (39.3-74.2) Lymph % (Auto) 31.4 % % (15.0-45.0) Jones % (Auto) 7.0 % % (4.5-13.0) Eos % (Auto) 4.9 % % (0.6-7.6) Baso % (Auto) 0.6 % % (0.3-1.7) Nucleat RBC Rel Count 0.0 % % (0.0-0.2) Absolute Neuts (auto) 3.54 10^3/uL 10^3/uL (1.70-6.50) Absolute Lymphs (auto) 1.99 10^3/uL 10^3/uL (1.00-3.00) Absolute Monos (auto) 0.44 10^3/uL 10^3/uL (0.30-0.80) Absolute Eos (auto) 0.31 10^3/uL 10^3/uL (0.03-0.40) Absolute Basos (auto) 0.04 10^3/uL 10^3/uL (0.02-0.10) Absolute Nucleated RBC 0.00 10^3/uL 10^3/uL (0-0.01) Immature Gran % 0.2 % % (0.0-1.1) Immature Gran # 0.01 10^3/uL 10^3/uL (0.00-0.10) Sodium Potassium Chloride Carbon Dioxide Anion Gap BUN Creatinine Estimated GFR Glucose Calcium Beta HCG, Qual Urine Color Urine Appearance Urine pH Ur Specific [place] Urine Protein Urine Ketones Urine Blood Urine Nitrate Urine Bilirubin Urine Urobilinogen Ur Leukocyte Esterase Urine Glucose Medications Given: Discontinued Medications Ketorolac Tromethamine (Toradol) 30 mg IVP EDNOW ONE Stop: 02/18/18 21:02 Last Admin: 02/18/18 21:04 Dose: 30 mg Departure - Departure Disposition: Home, Routine, Self-Care Clinical Impression: Pelvic pain in female Condition: Good Instructions: Pelvic Pain in Women (ED) Additional Instructions: Ibuprofen 600 mg 3 times daily while the pain persists. Tylenol 650 mg every 4 hr as needed for pain. Follow-up with your OBGYN. Referrals: CLAU BROOKS [Other] - As per Instructions
[2018-02-18 21:10] LABS: PLATELET COUNT 333 10^3/uL (150-400)
[2018-02-18] MEDS ORDERED: ACETAMINOPHEN 325 MG TAB PO ONE (21:40)
[2018-02-18 21:54] VITALS: BP 130/74
== END 2018-02-18 21:54 | disposition home or self-care (01) ==
DX: R10.2 Pelvic and perineal pain (principal); N83.209 Unspecified ovarian cyst, unspecified side; I10 Essential (primary) hypertension; F31.9 Bipolar disorder, unspecified; F17.210 Nicotine dependence, cigarettes, uncomplicated
CPT/HCPCS: 96374; J1885